=== PATIENT | female | born 1960 | race Caucasian/White ===

== ENCOUNTER → 2018-02-24 12:52 | Outpatient (CLI) | payer MEDICARE, MEDICAID, SELFPAY ==
--- NOTE | 2018-02-24 | DI.MRI.S_ITS ---
PROCEDURE: MR THORACIC SPINE WO CON INDICATIONS: back pain TECHNIQUE: Noncontrast sagittal T1 spine echo and T2 fast spin echo, sagittal STIR, axial T1 and T2 fast spin echo through the thoracic spine. COMPARISON: [facility], , T-SPINE WITHOUT CONTRAST, 03/03/2017, 10:24. [facility], CR, XR THORACIC SPINE 2 VIEWS, 02/15/2018, 16:18. FINDINGS: Image quality: Excellent. Alignment and Curvature: There is normal bony alignment. Bone Marrow: Marrow is of normal overall signal. No acute vertebral body compression fractures. Spinal Cord: Visualized spinal cord is normal in size and signal. Paraspinous Soft Tissues: No paravertebral masses. Disc space levels: Multilevel disc desiccation is present. No significant neural impingement. On axial images, central canal and foramina appear widely patent at all scanned levels. IMPRESSION: Multilevel degenerative disc disease. No neural impingement. No change. Dictated by: Gregor Elliott M.D. on 02/24/2018 at 14:33 Approved by: Gregor Elliott M.D. on 02/24/2018 at 14:35
== END ==
PROVIDERS: Family Provider Family Medicine; PCP Family Medicine; Visit Provider Physical Medicine & Rehabilitation Pain Medicine
DX: M54.6 Pain in thoracic spine (principal); M51.34 Other intervertebral disc degeneration, thoracic region
CPT/HCPCS: 72146

== ENCOUNTER 2018-03-13 16:42 | Emergency (ER) | payer MEDICARE, MEDICAID, SELFPAY ==
--- NOTE | 2018-03-13 16:44 | ED.FEMALEGU ---
HPI - Female Genitourinary <TAYLOR Fan - Last Filed: 03/13/18 22:23> General Chief complaint: Abdominal Pain Stated complaint: UTI/NAUSEA Time Seen by Provider: 03/13/18 16:44 History of Present Illness HPI Narrative: 57-year-old female here for complaint of signs and symptoms of a urinary tract infection with suprapubic pain over the past few days. She reports that she has had multiple urinary tract infections over the past 6 months. She was seen by Urology and was cleared last month. She does state that she has generalized abdominal pain mostly to bilateral lower abdomen. She denies any dysuria or increased urinary frequency is. She thinks that she may had a fever yesterday. No flank pain. Positive p.o. intake. Last bowel movement was earlier today and was unremarkable. She denies any stressors or relievers of her discomfort. She does state that she has had some whitish vaginal discharge. She denies being sexually active. MD Complaint: UTI Related Data Home Medications Medication Instructions Recorded Confirmed [IBS-ULTRA BETAINE HC] 1 dose PO DAILY #0 09/13/17 03/13/18 [benifiber] 1 dose PO BID 03/13/18 03/13/18 venlafaxine 150 mg PO DAILY 03/13/18 03/13/18 Previous Rx's Medication Instructions Recorded atorvastatin 40 mg PO HS #30 tab 12/07/17 fluticasone 1 spray NA SEE INSTRUCTIONS PRN #1 02/20/18 bot diazepam 5 mg tablet 5 mg PO TIDP PRN #30 tab 03/09/18 gabapentin [Neurontin] 300 mg PO TID #90 cap 03/09/18 tizanidine 4 mg PO TID PRN #90 tab 03/09/18 ondansetron [Zofran ODT] 4 mg PO TID PRN #10 tab 03/13/18 Allergies Allergy/AdvReac Type Severity Reaction Status Date / Time Penicillins [PENICILLINS] Allergy Unknown Unverified 12/14/17 12:21 Review of Systems <TAYLOR Fan - Last Filed: 03/13/18 22:23> Constitutional Reports fever(s) Eyes Denies change in vision, Denies eye discharge, Denies irritation and Denies loss of vision ENT Ears, Nose, Mouth, and Throat: Denies change in voice, Denies neck pain and Denies sore throat Cardiovascular Denies chest pain, Denies irregular heart rhythm, Denies lightheadedness, Denies palpitations, Denies dyspnea, Denies dyspnea on exertion and Denies orthopnea Respiratory Denies cough, Denies dyspnea, Denies dyspnea on exertion and Denies wheezing Gastrointestinal Gastrointestinal: Reports abdominal pain Genitourinary Denies hematuria, Denies flank pain, Denies urinary incontinence, Denies urinary urgency and Reports vaginal discharge Musculoskeletal Denies neck pain Integumentary/Breasts Denies pruritus, Denies erythema, Denies rash and Denies wounds Neurologic Denies confusion and Denies loss of vision Psychiatric Denies anxiety, Denies confusion, Denies depression, Denies homicidal ideation and Denies suicidal ideation Endocrine Denies palpitations Hematologic/Lymphatic Denies easy bruising Allergic/Immunologic Denies wheezing Exam <TAYLOR Fan - Last Filed: 03/13/18 22:23> Initial Vital Signs Initial Vital Signs: Vital Signs Temperature 97.9 F 03/13/18 16:50 Pulse Rate 65 03/13/18 16:50 Respiratory Rate 20 03/13/18 16:50 Blood Pressure 115/64 03/13/18 16:50 Pulse Oximetry 97 03/13/18 16:50 Const General: cooperative and well developed Nutritional Appearance: well nourished Orientation: alert, awake, oriented x3 and not confused [facility] Mouth: oral mucosae normal and moist mucous membranes Eyes Conjunctivae: conjunctivae normal Sclera: sclerae normal Pupils: PERRL EOM: EOM intact bilaterally Resp Effort & Inspection: normal respiratory effort, able to speak in complete sentences, no respiratory distress and no use of accessory muscles Auscultation: clear to auscultation bilaterally, no rales, no rhonchi and no wheezes Cardio Rate: regular rate Rhythm: regular rhythm Heart Sounds: no click, no gallops, no murmurs and no rubs Pulses: normal peripheral pulses GI Inspection: non-distended Palpation: soft, no hepatosplenomegaly, No guarding, No pulsatile mass and tender (Tenderness bilaterally to lower quadrant) Auscultation: normal bowel sounds Skin General: no rashes or lesions noted, No jaundice and No petechiae Neuro General: alert, oriented x3, gait normal and no focal motor deficits Speech: speech normal <Michelet Quiñones DO - Last Filed: 03/14/18 07:21> Initial Vital Signs Initial Vital Signs: Vital Signs Temperature 97.9 F 03/13/18 16:50 Pulse Rate 65 03/13/18 16:50 Respiratory Rate 20 03/13/18 16:50 Blood Pressure 115/64 03/13/18 16:50 Pulse Oximetry 97 03/13/18 16:50 Course <TAYLOR Fan - Last Filed: 03/13/18 22:23> Orders Ordered: Discontinued Medications Hydromorphone HCl (Dilaudid) 0.5 mg IV NOW ONE Stop: 03/13/18 17:12 Last Admin: 03/13/18 17:55 Dose: 0.5 mg Sodium Chloride (Normal Saline 0.9%) 1,000 mls @ 1,000 mls/hr IV BOLUS ONE Stop: 03/13/18 18:10 Last Admin: 03/13/18 17:55 Dose: 1,000 mls/hr Ondansetron HCl (Zofran) 4 mg IV NOW ONE Stop: 03/13/18 17:12 Last Admin: 03/13/18 17:55 Dose: 4 mg Vital Signs - 8 hr 03/13/18 16:50 03/13/18 19:50 Temperature 97.9 F Pulse Rate 65 72 Respiratory Rate 20 20 Blood Pressure 115/64 118/70 Pulse Oximetry 97 99 <Michelet Quiñones DO - Last Filed: 03/14/18 07:21> Orders Ordered: Discontinued Medications Hydromorphone HCl (Dilaudid) 0.5 mg IV NOW ONE Stop: 03/13/18 17:12 Last Admin: 03/13/18 17:55 Dose: 0.5 mg Sodium Chloride (Normal Saline 0.9%) 1,000 mls @ 1,000 mls/hr IV BOLUS ONE Stop: 03/13/18 18:10 Last Admin: 03/13/18 17:55 Dose: 1,000 mls/hr Ondansetron HCl (Zofran) 4 mg IV NOW ONE Stop: 03/13/18 17:12 Last Admin: 03/13/18 17:55 Dose: 4 mg Vital Signs - 8 hr 03/13/18 16:50 03/13/18 19:50 Temperature 97.9 F Pulse Rate 65 72 Respiratory Rate 20 20 Blood Pressure 115/64 118/70 Pulse Oximetry 97 99 MDM - Female Genitourinary <TAYLOR Fan - Last Filed: 03/13/18 22:23> Lab Data Result diagrams: 03/13/18 17:30 03/13/18 17:30 Lab Results 03/13/18 03/13/18 03/13/18 Range/Units 17:30 17:30 17:30 WBC 8.6 (4.5-11.0) X10^3/uL RBC 4.61 (4.0-5.2) X10^6/uL Hgb 14.2 (12.0-16.0) g/dL Hct 42.2 (36-46) % MCV 91.6 (80-100) fL MCH 30.8 (26-34) PG MCHC 33.6 (30-36) % RDW 14.1 (11.6-14.8) % Plt Count 254 (150-400) X10^3/uL Neut % (Auto) 62.2 (50-75) % Lymph % (Auto) 31.2 (25-40) % Blanco % (Auto) 5.2 (3-14) % Eos % (Auto) 0.6 L (2-4) % Baso % (Auto) 0.8 (0-2) % Neut # (Auto) 5400 (7333-6629) /uL Sodium 146 H (137-145) mmol/L Potassium 4.2 (3.4-5.1) mmol/L Chloride 105 (98-107) mmol/L Carbon Dioxide 32 (22-32) mmol/L BUN 9 (7-17) mg/dL Creatinine 0.70 (0.52-1.04) mg/dL Estimated GFR > 60.0 (>60) mL/min BUN/Creatinine Ratio 12.9 (6-22) Glucose 91 (70-100) mg/dL Calcium 9.4 (8.4-10.2) mg/dL Total Bilirubin 0.5 (0.2-1.3) mg/dL AST 24 (14-36) IU/L ALT 25 (9-52) IU/L Alkaline Phosphatase 87 (38-126) U/L Total Protein 7.2 (6.3-8.2) g/dL Albumin 4.2 (3.5-5.0) g/dL Globulin 3.0 (1.7-4.1) g/dL Albumin/Globulin Ratio 1.4 (1.0-2.8) Lipase 623 H (23-300) U/L Imaging Data CT scan - abdomen: Radiologist's impression: CT Scan Report Signed Patient: Ashwini Rosas MR#: [id number] : 1960 Acct:[id number] Age/Sex: 57 / F Date of Service: 03/13/18 Loc: ED Accession Number: [id number] Procedure: CT abdomen pelvis w con Ordering Provider: Jean Carlos To PROCEDURE: CT ABDOMEN PELVIS W CON INDICATIONS: Bilateral lower abdominal pain TECHNIQUE: After the administration of intravenous contrast, 5 mm thick sections acquired from the diaphragm to the symphysis. 5 mm coronal and sagittal reformats were acquired. For radiation dose reduction, the following was used: automated exposure control, adjustment of mA and/or kV according to patient size. COMPARISON: [facility], CT, ABDOMEN/PELVIS WITH CONTRAST, 10/14/2016, 11:14. FINDINGS: Image quality: Excellent. ABDOMEN: Lung bases: Lung bases are clear. Heart size is normal. Solid organs: Liver is normal in size and enhancement. Gallbladder is within normal limits. Biliary system is non dilated. Pancreas enhances normally. Spleen is normal in size and enhancement. No adrenal nodules. Kidneys demonstrate normal size and enhancement, without hydronephrosis. Peritoneum and bowel: Bowel loops demonstrate normal wall thickness and caliber. No free fluid or air. Normal appendix. Nodes and vessels: No retroperitoneal or mesenteric adenopathy by size criteria. Aorta and inferior vena cava are normal in size. Miscellaneous: No ventral hernias. PELVIS: Genitourinary: Bladder wall thickness is normal. Miscellaneous: No inguinal hernias or adenopathy. Bones: No suspicious bony lesions. No vertebral body compression fractures. IMPRESSION: 1. No acute process. 2. Normal appendix. Dictated by: Gregor Elliott M.D. on 03/13/2018 at 18:58 Approved by: Gregor Elliott M.D. on 03/13/2018 at 19:00 [facility] Narrative Medical decision making narrative: CBC and Chem panel were obtained and were unremarkable. Lipase was elevated at [address] was obtained was negative for any acute findings. Vaginal wet prep was obtained was negative for any acute findings. Vaginal culture is pending. Urinalysis was negative for urinary tract infection. No etiology is found today for her abdominal pain. She is recommended to follow up with primary care provider in the next couple of days for re-evaluation. Use [id number] Tylenol Motrin as needed for discomfort for any worsening symptoms return to the emergency room. Patient requested as some Zofran prescribed for nausea she is given a small amount of Zofran ODT. <Michelet Quiñones, DO - Last Filed: 03/14/18 07:21> Lab Data Lab Results 03/13/18 03/13/18 03/13/18 Range/Units 17:30 17:30 17:30 WBC 8.6 (4.5-11.0) X10^3/uL RBC 4.61 (4.0-5.2) X10^6/uL Hgb 14.2 (12.0-16.0) g/dL Hct 42.2 (36-46) % MCV 91.6 (80-100) fL MCH 30.8 (26-34) PG MCHC 33.6 (30-36) % RDW 14.1 (11.6-14.8) % Plt Count 254 (150-400) X10^3/uL Neut % (Auto) 62.2 (50-75) % Lymph % (Auto) 31.2 (25-40) % Blanco % (Auto) 5.2 (3-14) % Eos % (Auto) 0.6 L (2-4) % Baso % (Auto) 0.8 (0-2) % Neut # (Auto) 5400 (5750-5610) /uL Sodium 146 H (137-145) mmol/L Potassium 4.2 (3.4-5.1) mmol/L Chloride 105 (98-107) mmol/L Carbon Dioxide 32 (22-32) mmol/L BUN 9 (7-17) mg/dL Creatinine 0.70 (0.52-1.04) mg/dL Estimated GFR > 60.0 (>60) mL/min BUN/Creatinine Ratio 12.9 (6-22) Glucose 91 (70-100) mg/dL Calcium 9.4 (8.4-10.2) mg/dL Total Bilirubin 0.5 (0.2-1.3) mg/dL AST 24 (14-36) IU/L ALT 25 (9-52) IU/L Alkaline Phosphatase 87 (38-126) U/L Total Protein 7.2 (6.3-8.2) g/dL Albumin 4.2 (3.5-5.0) g/dL Globulin 3.0 (1.7-4.1) g/dL Albumin/Globulin Ratio 1.4 (1.0-2.8) Lipase 623 H (23-300) U/L Discharge Plan Departure Patient Disposition: Home, Self-Care Clinical Impression: Abdominal pain Discharge Date/Time: 03/13/18 19:50 Interventions: ED Discharge Assessment Last Done: 03/13/18 19:50 Instructions: DI for Abdominal Pain-Adult Activity Restrictions/Additional Instructions: Laboratory results and imaging today were unremarkable. Urinalysis was negative for urinary tract infection. Unknown cause of year abdominal pain today. Follow up with her primary care provider in the next couple of days for re-evaluation. Zofran is prescribed to help with any nausea use as directed. Use [id number] Tylenol Motrin as needed for any discomfort. For any worsening symptoms return to the emergency room. Prescriptions: New ondansetron [Zofran ODT] 4 mg tablet,disintegrating 4 mg PO TID PRN (Reason: nausea and vomiting) Qty: 10 RF: 0 No Action [IBS-ULTRA BETAINE HC] 1 dose PO DAILY Qty: 0 RF: 0 atorvastatin 40 MG tablet 40 mg PO HS Qty: 30 RF: 5 fluticasone 50 mcg/actuation spray,suspension 1 spray NA SEE INSTRUCTIONS PRNQty: 1 RF: 2 diazepam 5 mg tablet 5 mg PO TIDP PRN (Reason: muscle spasm) Qty: 30 RF: 0 gabapentin [Neurontin] 300 mg capsule 300 mg PO TID Qty: 90 RF: 3 tizanidine 4 mg tablet 4 mg PO TID PRNQty: 90 RF: 3 venlafaxine 150 mg capsule,extended release 24hr 150 mg PO DAILY RF: 0 [benifiber] 1 dose PO BID RF: 0 Referrals: Randy Cisneros MD [Primary Care Provider] - <Michelet Quiñones DO - Last Filed: 03/14/18 07:21> Cosign ED Attending Umesh Attestation: I was available for consultation during this patient's emergency department encounter
[2018-03-13 16:50] VITALS: BP 115/64; PULSE 65; RESP 20; TEMP 36.6; O2SAT 97
--- NOTE | 2018-03-13 17:13 | DI.CT.S_ITS ---
PROCEDURE: CT ABDOMEN PELVIS W CON INDICATIONS: Bilateral lower abdominal pain TECHNIQUE: After the administration of intravenous contrast, 5 mm thick sections acquired from the diaphragm to the symphysis. 5 mm coronal and sagittal reformats were acquired. For radiation dose reduction, the following was used: automated exposure control, adjustment of mA and/or kV according to patient size. COMPARISON: [facility], CT, ABDOMEN/PELVIS WITH CONTRAST, 10/14/2016, 11:14. FINDINGS: Image quality: Excellent. ABDOMEN: Lung bases: Lung bases are clear. Heart size is normal. Solid organs: Liver is normal in size and enhancement. Gallbladder is within normal limits. Biliary system is non dilated. Pancreas enhances normally. Spleen is normal in size and enhancement. No adrenal nodules. Kidneys demonstrate normal size and enhancement, without hydronephrosis. Peritoneum and bowel: Bowel loops demonstrate normal wall thickness and caliber. No free fluid or air. Normal appendix. Nodes and vessels: No retroperitoneal or mesenteric adenopathy by size criteria. Aorta and inferior vena cava are normal in size. Miscellaneous: No ventral hernias. PELVIS: Genitourinary: Bladder wall thickness is normal. Miscellaneous: No inguinal hernias or adenopathy. Bones: No suspicious bony lesions. No vertebral body compression fractures. IMPRESSION: 1. No acute process. 2. Normal appendix. Dictated by: Gregor Elliott M.D. on 03/13/2018 at 18:58 Approved by: Gregor Elliott M.D. on 03/13/2018 at 19:00
[2018-03-13 17:46] LABS: Add Manual Diff / Slide Review NO; Basophils Percent Auto 0.8 % (0-2); Eosinophils Percent Auto 0.6 % (2-4); Hematocrit 42.2 % (36-46); Hemoglobin 14.2 g/dL (12.0-16.0); Lymphocytes Percent Auto 31.2 % (25-40); Mean Corpuscular HGB Conc 33.6 % (30-36); Mean Corpuscular Hemoglobin 30.8 PG (26-34); Mean Corpuscular Volume 91.6 fL (80-100); Monocytes Percent Auto 5.2 % (3-14); Neutrophils Absolute Auto 5400 /uL (3000-5900); Neutrophils Percent Auto 62.2 % (50-75); Platelet Count 254 X10^3/uL (150-400); Red Blood Cell Count 4.61 X10^6/uL (4.0-5.2); Red Cell Distribution Width 14.1 % (11.6-14.8); White Blood Cell Count 8.6 X10^3/uL (4.5-11.0)
[2018-03-13] MEDS: SODIUM CHLORIDE 0.9% 1,000 ML 1000 ML IV (17:55)
[2018-03-13] MEDS: ONDANSETRON 4 MG/2 ML INJ IV (17:55)
[2018-03-13] MEDS: HYDROMORPHONE 1 MG INJ 0.5 MG IV (17:55)
[2018-03-13 18:00] LABS: Alanine Aminotransferase 25 IU/L (9-52); Albumin 4.2 g/dL (3.5-5.0); Albumin Globulin Ratio 1.4 (1.0-2.8); Alkaline Phosphatase 87 U/L (38-126); Aspartate Aminotransferase 24 IU/L (14-36); BUN Creatinine Ratio 12.9 (6-22); Bilirubin Total 0.5 mg/dL (0.2-1.3); Blood Urea Nitrogen 9 mg/dL (7-17); Calcium 9.4 mg/dL (8.4-10.2); Carbon Dioxide 32 mmol/L (22-32); Chloride 105 mmol/L (98-107); Estimated Glomerular Filt Rate > 60.0 mL/min (>60); Glucose 91 mg/dL (70-100); HEMOLYSIS < 15 (0-50); Potassium 4.2 mmol/L (3.4-5.1); Sodium 146 mmol/L (137-145); Total Protein 7.2 g/dL (6.3-8.2)
--- NOTE | 2018-03-13 18:18 | PC.NURSE ---
Addendum entered by Georgia Clay R.N. 03/13/18 18:19: assisted darren Fan with pelvic exams. cultures sent to lab. Original Note: assisted Jean Carlos Smith
[2018-03-13 18:51] LABS: Lipase 623 U/L (23-300)
[2018-03-13 19:50] VITALS: BP 118/70; PULSE 72; RESP 20; O2SAT 99
== END 2018-03-13 19:50 | disposition home or self-care (01) ==
PROVIDERS: Emergency Provider Nurse Practitioner Family; Family Provider Family Medicine; PCP Family Medicine
DX: R10.9 Unspecified abdominal pain (principal)
CPT/HCPCS: 36591; 74177; 80053; 81003; 83690; 85025; 87070; 87205; 87210; 96361; 96374; 96375; 99283; 99285; J1170; J2405; Q9967

== ENCOUNTER → 2018-05-10 10:42 | Outpatient (CLI) | payer MEDICARE, MEDICAID, SELFPAY ==
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
== END ==
PROVIDERS: Family Provider Family Medicine; PCP Family Medicine; Visit Provider Family Medicine
DX: R63.4 Abnormal weight loss (principal)
CPT/HCPCS: 97802

== ENCOUNTER → 2018-06-07 10:46 | Outpatient (CLI) | payer MEDICARE, MEDICAID, SELFPAY ==
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
== END ==
PROVIDERS: PCP Family Medicine; Visit Provider Family Medicine
DX: R63.4 Abnormal weight loss (principal)
CPT/HCPCS: 97803

== ENCOUNTER → 2018-07-05 12:54 | Outpatient (CLI) | payer MEDICARE, MEDICAID, SELFPAY ==
--- NOTE | 2018-07-05 14:27 | DIET.PN ---
Met for 2nd f/u consult. Ashwini brought food journal with her. Has been keeping journal for a very long time and reporting to IBS nurse. Food record is very brief with no quantities; pt unaware of servings. A quick calculation of one of the days shows calories approx 1000 to 1200. Continues to meet with P.T. 2x/wk. States she's not getting stronger or getting better. With further inquiry admits she is lifting her arms higher; able to operate a hand cycle machine that she couldn't have a month ago, etc. Weight: 146# Assessment: Wt stable and at good level. Appears to be making progress, though very slowly, with building strength/muscle and needs constant reminders to help see the improvement. Food record is not very useful but does show limited items. Has difficulty with eating many foods r/t poor dentition - needs teeth removed and to get dentures. Has increased protein intake with use of Muscle Milk, but needs more calories to build muscle. Intervention: Pointed out markers to help pt realize improvements made and encourage her to focus on these. Suggest Ashwini get calorie counting book and keep track of italo intake - needs at least 1800 cals/day. Reinforced need for frequent intake; calorie/protein dense foods. Ashwini states she has one more visit with me - will f/u next month
== END ==
PROVIDERS: PCP Student in an Organized Health Care Education/Training Program; Visit Provider Family Medicine
DX: R63.4 Abnormal weight loss (principal)
CPT/HCPCS: 97803

== ENCOUNTER → 2018-08-02 12:59 | Outpatient (CLI) | payer MEDICARE, MEDICAID, SELFPAY ==
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
== END ==
PROVIDERS: PCP Student in an Organized Health Care Education/Training Program; Visit Provider Student in an Organized Health Care Education/Training Program
DX: R63.4 Abnormal weight loss (principal)
CPT/HCPCS: 97803

== ENCOUNTER → 2019-02-23 13:32 | Outpatient (CLI) | payer MEDICARE, SELFPAY ==
[2019-02-23 14:28] LABS: BUN Creatinine Ratio 17.5 (6-22); Blood Urea Nitrogen 14 mg/dL (7-17); Calcium 9.6 mg/dL (8.4-10.2); Carbon Dioxide 31 mmol/L (22-32); Chloride 105 mmol/L (98-107); Estimated Glomerular Filt Rate > 60.0 mL/min (>60); Glucose 98 mg/dL (70-100); HEMOLYSIS < 15 (0-50); Potassium 4.5 mmol/L (3.4-5.1); Sodium 143 mmol/L (137-145)
[2019-02-23 15:16] LABS: Vitamin B12 374 pg/mL (239-931)
[2019-02-23 16:06] LABS: Vitamin D 25 Hydroxy (D3) 39.4 ng/mL (30.0-100.0)
== END ==
PROVIDERS: PCP Student in an Organized Health Care Education/Training Program; Visit Provider Student in an Organized Health Care Education/Training Program
DX: E55.9 Vitamin D deficiency, unspecified (principal); G89.29 Other chronic pain; M54.6 Pain in thoracic spine; G62.9 Polyneuropathy, unspecified; I95.9 Hypotension, unspecified
CPT/HCPCS: 36415; 80048; 82306; 82607

== ENCOUNTER → 2019-07-06 13:55 | Outpatient (CLI) | payer MEDICARE, MEDICAID, SELFPAY ==
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
== END ==
PROVIDERS: PCP Student in an Organized Health Care Education/Training Program; Visit Provider Student in an Organized Health Care Education/Training Program
DX: R20.2 Paresthesia of skin (principal); M47.812 Spondylosis without myelopathy or radiculopathy, cervical region
CPT/HCPCS: 72141

== ENCOUNTER → 2019-09-10 15:50 | Outpatient (CLI) | payer MEDICARE, MEDICAID, SELFPAY ==
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
== END ==
PROVIDERS: PCP Student in an Organized Health Care Education/Training Program; Visit Provider Student in an Organized Health Care Education/Training Program
DX: M25.511 Pain in right shoulder (principal); M75.111 Incomplete rotator cuff tear or rupture of right shoulder, not specified as traumatic; M19.011 Primary osteoarthritis, right shoulder
CPT/HCPCS: 73221

== ENCOUNTER → 2019-12-11 15:13 | Outpatient (CLI) | payer MEDICARE, MEDICAID, SELFPAY ==
[2019-12-11 17:13] LABS: Influenza A - CEPHEID Flu A NEGATIVE (NEGATIVE); Influenza B - CEPHEID Flu B NEGATIVE (NEGATIVE)
[2019-12-13 01:10] LABS: COVID19 Sendout Not Detected (Not Detected)
== END ==
PROVIDERS: PCP Student in an Organized Health Care Education/Training Program; Visit Provider Physician Assistant
DX: R05 Cough (principal)
CPT/HCPCS: 87502; 87635

== ENCOUNTER → 2019-12-27 11:00 | Outpatient (CLI) | payer MEDICARE, MEDICAID, SELFPAY ==
--- NOTE | 2019-12-27 11:03 | DI.RAD.S_ITS ---
PROCEDURE: XR CHEST 2V INDICATIONS: Cough, SOB (COVID negative) TECHNIQUE: 2 views of the chest were acquired. COMPARISON: [facility], , CHEST 2 VIEW, 08/16/2017, 13:09. FINDINGS: Surgical changes and devices: None. Lungs and pleura: Lungs are clear. No pleural effusions or pneumothorax. Mediastinum: Mediastinal contours are normal. Heart size is normal. Bones and chest wall: No suspicious bony abnormalities. Soft tissues appear unremarkable. IMPRESSION: No acute cardiopulmonary disease. Dictated by: Román Rodriguez M.D. on 12/27/2019 at 13:21 Approved by: Román Rodriguez M.D. on 12/27/2019 at 13:22
== END ==
PROVIDERS: PCP Student in an Organized Health Care Education/Training Program; Referring Provider Student in an Organized Health Care Education/Training Program; Visit Provider Student in an Organized Health Care Education/Training Program
DX: R05 Cough (principal); R06.02 Shortness of breath
CPT/HCPCS: 71046

== ENCOUNTER → 2020-10-10 13:02 | Outpatient (CLI) | payer MEDICARE, MEDICAID, SELFPAY ==
--- NOTE | 2020-10-10 13:05 | DI.CT.S_ITS ---
PROCEDURE: CT ABDOMEN PELVIS WO CON INDICATIONS: Abdominal pain and distention TECHNIQUE: Noncontrast 5 mm thick sections acquired from the diaphragms to the symphysis. 5 mm coronal and sagittal reformats were then performed. For radiation dose reduction, the following was used: automated exposure control, adjustment of mA and/or kV according to patient size. COMPARISON: 09/15/20 from [facility]. FINDINGS: Image quality: Excellent. ABDOMEN: Lung bases: Lung bases are clear. Heart size is normal. Solid organs: Liver is normal in size. Gallbladder is normal . Pancreas is normal in contours. Spleen is normal in size. No adrenal nodules. Kidneys are normal in size, without hydronephrosis or nephrolithiasis. Peritoneum and bowel: Unenhanced bowel loops demonstrate normal wall thickness and caliber. Subcentimeter intraluminal nonobstructing lipoma in the 2nd portion of the duodenum. Normal appendix. No free fluid or air. Nodes and vessels: No retroperitoneal or mesenteric adenopathy by size criteria. Aorta and inferior vena cava are normal in caliber. Moderate abdominal aortic atherosclerotic calcification. Miscellaneous: No ventral hernias. PELVIS: Genitourinary: Bladder wall thickness is normal. Uterus and ovaries are normal. Miscellaneous: No inguinal hernias or adenopathy. Bones: No suspicious bony lesions. No vertebral body compression fractures. IMPRESSION: 1. No acute process. 2. Resolution of prominent mesenteric lymph nodes. Dictated by: Renetta Simental M.D. on 10/10/2020 at 16:57 Approved by: Renetta Simental M.D. on 10/10/2020 at 17:04
== END ==
PROVIDERS: PCP Student in an Organized Health Care Education/Training Program; Referring Provider Student in an Organized Health Care Education/Training Program; Visit Provider Student in an Organized Health Care Education/Training Program
DX: R14.0 Abdominal distension (gaseous) (principal); R10.9 Unspecified abdominal pain
CPT/HCPCS: 74176

== ENCOUNTER → 2020-11-14 11:37 | Outpatient (CLI) | payer MEDICARE, MEDICAID, SELFPAY ==
--- NOTE | 2020-11-14 11:39 | DI.RAD.S_ITS ---
PROCEDURE: XR SACRUM COCCYX MIN 2V INDICATIONS: Coccygeal pain, numbness TECHNIQUE: 3 views of the sacrum and coccyx acquired. COMPARISON: None. FINDINGS: Bones: No acute fracture identified. Lower lumbar spondylosis and facet disease. Alignment at the sacroiliac joints is anatomic. There is mild periarticular sclerosis and spurring without joint space narrowing of the SI joints. Bilateral hip degenerative subchondral sclerosis and spurring. Soft tissues: Visualized bowel gas pattern is normal. No suspicious soft tissue densities. IMPRESSION: No acute fracture identified. Degenerative changes as above Dictated by: Royal Lew M.D. on 11/14/2020 at 12:57 Approved by: Royal Lew M.D. on 11/14/2020 at 12:59
== END ==
PROVIDERS: PCP Student in an Organized Health Care Education/Training Program; Referring Provider Student in an Organized Health Care Education/Training Program; Visit Provider Student in an Organized Health Care Education/Training Program
DX: M53.3 Sacrococcygeal disorders, not elsewhere classified (principal); M54.17 Radiculopathy, lumbosacral region; R20.0 Anesthesia of skin
CPT/HCPCS: 72220

== ENCOUNTER → 2021-01-09 16:11 | Outpatient (CLI) | payer MEDICARE, MEDICAID, SELFPAY ==
--- NOTE | 2021-01-09 16:13 | DI.RAD.S_ITS ---
PROCEDURE: XR HIP W PEL IF DONE VALERIY MIN 4V INDICATIONS: Possible bursititis of hips TECHNIQUE: AP pelvis with lateral view(s) of the left and right hip(s). COMPARISON: [facility], CT, CT ABDOMEN PELVIS WO CON, 10/10/2020, 13:06. FINDINGS: Bones: No fractures or dislocations. Pelvic ring appears intact. No suspicious bony lesions. Soft tissues: The visualized bowel gas pattern is normal. No suspicious soft tissue calcifications. IMPRESSION: Mild symmetric hip joint degeneration. Dictated by: Travon Arthur [facility] Interpreted: Jake Mcginnis MD on 01/09/2021 at 16:34 Transcribed by: JEFFREY on 01/09/2021 at 16:34 Approved by: Jake Mcginnis M.D. on 01/09/2021 at 16:53
== END ==
PROVIDERS: PCP Student in an Organized Health Care Education/Training Program; Referring Provider Student in an Organized Health Care Education/Training Program; Visit Provider Student in an Organized Health Care Education/Training Program
DX: M16.0 Bilateral primary osteoarthritis of hip (principal)
CPT/HCPCS: 73522

== ENCOUNTER → 2021-01-21 15:14 | Outpatient (CLI) | payer MEDICARE, MEDICAID, SELFPAY ==
[2021-01-21 15:27] LABS: Bacteria Urine None Seen; RBC Urine None Seen (0-5/HPF); WBC Urine None Seen (0-5/HPF)
[2021-01-21 17:18] LABS: Appearance Urine UA CLEAR; Bilirubin Urine UA NEGATIVE (NEGATIVE); Color Urine UA YELLOW; Glucose Urine UA NEGATIVE (Negative); Ketones Urine UA NEGATIVE (NEGATIVE); Leukocyte Esterase Urine UA NEGATIVE (NEGATIVE); Nitrite Urine UA NEGATIVE (Negative); Occult Blood Urine UA 1+ (Negative); Protein Urine UA NEGATIVE (Negative); Urobilinogen Urine UA 0.2 E.U./dL (0.2)
[2021-01-21 17:19] LABS: Culture Indicated Urine Cult Not Indicated; Squamous Epithelial Cell Urine 0-1 /HPF (0-5/HPF); pH Urine UA 5.5 (4.5-8.0)
== END ==
PROVIDERS: PCP Student in an Organized Health Care Education/Training Program; Referring Provider Student in an Organized Health Care Education/Training Program; Visit Provider Student in an Organized Health Care Education/Training Program
DX: R30.0 Dysuria (principal)
CPT/HCPCS: 81001

== ENCOUNTER → 2021-02-06 17:54 | Outpatient (CLI) | payer MEDICARE, MEDICAID, SELFPAY ==
--- NOTE | 2021-02-06 17:58 | DI.MRI.S_ITS ---
PROCEDURE: MR LUMBAR SPINE WO CON INDICATIONS: lumbar pain TECHNIQUE: Noncontrast sagittal T1 spin echo and T2 fast echo, sagittal STIR, axial T1 and T2 fast spin echo through the lumbar spine. In cases with scoliosis, additional coronal T2 fast spin echo may be performed. COMPARISON: None. FINDINGS: Image quality: Excellent. Alignment and Curvature: There is normal bony alignment. Bone Marrow: Marrow is of normal overall signal. No acute vertebral body compression fractures. Spinal Cord: Conus medullaris terminates at the L1 level. Visualized cord demonstrates normal signal and size. Paraspinous Soft Tissues: No paravertebral masses. 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 T12-L1: Normal appearance. L1-L2: Normal appearance. L2-L3: Normal appearance. L3-L4: Diffuse disc bulge with no significant foraminal or central canal stenosis. L4-L5: Diffuse disc bulge and facet hypertrophy causes mild bilateral foraminal stenosis. No central canal stenosis. L5-S1: Normal appearance. IMPRESSION: 1. Minimal diffuse disc bulge at L3-4 with no significant foraminal or central canal stenosis. 2. Mild diffuse disc bulge and facet hypertrophy at L4-5 causing mild bilateral foraminal stenosis. 3. No focal protrusion or extrusion. Dictated by: Jorge Hernández M.D. on 02/09/2021 at 8:22 Approved by: Jorge Hernández M.D. on 02/09/2021 at 8:51
== END ==
PROVIDERS: PCP Student in an Organized Health Care Education/Training Program; Referring Provider Student in an Organized Health Care Education/Training Program; Visit Provider Student in an Organized Health Care Education/Training Program
DX: M51.16 Intervertebral disc disorders with radiculopathy, lumbar region (principal); M54.5 Low back pain
CPT/HCPCS: 72148

== ENCOUNTER 2021-02-20 15:00 | Outpatient (RCR) | payer MEDICARE, MEDICAID, SELFPAY ==
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
--- NOTE | 2020-11-14 13:27 | PT.OPPOC ---
Physical, Occupational & Speech Therapy At [facility] Current Diagnoses Slow transit constipation (11/14/20) Pain in unspecified hip (11/14/20) Sacrococcygeal disorders, not elsewhere classified (11/14/20) Pelvic and perineal pain (11/14/20) Abnormal posture (11/14/20) Visit Care Team Role Provider Type Murtaza Segura MD Attending Provider Physician Primary Care Provider Referring Provider Specialty: Internal Medicine Address: [address] [place] [address], [address], [facility] Email: [email or web address] Plan Of Care PT-OP-T Assessment and Plan Start: 11/10/20 17:36 Freq: Status: Active Protocol: Document 11/14/20 10:37 LRN (Rec: 11/14/20 12:32 LRN [id number]) Physical Therapy Assessment Rehab Potential Rehabilitation Potential Fair Evaluation Complexity Number of Personal Factors/Comorbidities 3 or More Number of Body Systems Impaired 4 or More Clinical Presentation at Evaluation Evolving Impairments Impairments Activity Tolerance,Gait,Pain, ROM,Soft Tissue Mobility, Strength Other Impairments Constipation, anal pain. Goals Three Impairment Tenderness to palpation & multiple active Trigger Points in Pelvic region Short Term Goal (STG) Pt will be educated and able to perform self STM of active trigger points. STG Duration 11/28/20 [employer] Goal (LTG) Pt will be able to tolerate sitting for no less than 30 minutes. LTG Duration 02/12/21 Two Impairment Pelvic pain rated 9/10 Short Term Goal (STG) Pt will be educated in proper bowel care and pelvic stretches, with a decrease in pelvic pain 50%. STG Duration 01/02/21 [employer] Goal (LTG) Pt goal is to have a BM without pain or burning. LTG Duration 02/12/21 One Impairment Lacks appropriates self [facility] program. [facility] Goal (LTG) Pt will be independent with a self m[facility] program. LTG Duration 02/12/21 Assessment Summary Assessment Pt is a 60 year old female who presents with complaints of excruciating pain in the low buttocks, pelvic floor region, hips, and lower extremities, but is able to independently move on the plinth table and off/on the table. The pt has very low tolerance to mobility of hips and demonstrates pain behavior with light palpation in her hips and pelvic region ; therefore assessment of soft tissue, mobility and strength was very limited. I was not able to adequately assess her PF due to her pain behaviour and continual complaints of pain. The pt will need ongoing assessment as she had low tolerance to assessments. It is expected that the pt will need extended therapy due to her extensive medical history and comorbidities. The pt will benefit from skilled physical therapy for education in a self care program of trunk, hip and pelvic region with exercises, self soft tissue treatment, and importantly, education in proper bowel and self care. If the pt will tolerate a PF exam, manual therapy may be beneficial in reducing some of her pain symptoms. Physical Therapy Plan Frequency and Duration Frequency of Treatment 1x/Week Duration of Treatment 5 visits Plan of Care Start Date 11/14/20 Plan of Care End Date 02/12/21 Therapeutic Interventions Therapeutic Interventions Aquatic Therapy,Gait Training, Home Exercise Program,Joint Mobilizations,Manual Therapy, Patient/Caregiver Education, Self-Care/Home Management,Soft Tissue Mobilization, Therapeutic Activities, Therapeutic Exercises Other Therapeutic Interventions Aquatic therapy when available and when appropriate. Next Visit Focus/Plan Next Note Type Treatment Note Next Visit Plan Start with review of bladder diary & issued HEP. Assess soft tissue of the posterior PF (pt reportedly doesn't have as much of an issue with her bladder and urinary system although she has to forward bend to urinate), core and hips. Assess trunk mobility and core/hip strength. Discuss/educate pt in strategies for ease of having BM's and proper PF care; initiate HEP to address any mobility and strength deficits , STM to posterior PF muscles as necessary. Plan of Care Dates Plan of Care Start Date 11/14/20 Plan of Care End Date 02/12/21 Electronically Signed by: Zenaida Shepherd, PT 11/18/20 [id number] Please Sign and Return: I have reviewed this Plan of Care and certify that the skilled therapy services above are required to meet the patient?s needs. Physician Signature Date Printed Name and Credentials Clinical Instructor Signature Printed Name and Credentials
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
--- NOTE | 2021-02-10 17:03 | PT.OPPOC ---
Physical, Occupational & Speech Therapy At [facility] Current Diagnoses Slow transit constipation (02/10/21) Pain in unspecified hip (02/10/21) Sacrococcygeal disorders, not elsewhere classified (02/10/21) Pelvic and perineal pain (02/10/21) Abnormal posture (02/10/21) Visit Care Team Role Provider Type Murtaza Segura MD Attending Provider Physician Primary Care Provider Referring Provider Specialty: Internal Medicine Address: [address] [place] [address], [address], [facility] Email: [email or web address] Plan Of Care PT-OP-T Assessment and Plan Start: 11/10/20 17:36 Freq: Status: Active Protocol: Document 02/10/21 12:44 LRN (Rec: 02/10/21 14:23 LRN [id number]) Physical Therapy Assessment Rehab Potential Rehabilitation Potential Excellent Evaluation Complexity Number of Personal Factors/Comorbidities 3 or More Number of Body Systems Impaired 3 Clinical Presentation at Evaluation Evolving Impairments Impairments Pain,Posture,Soft Tissue Mobility Goals Four Impairment Pelvic pain with palpation Short Term Goal (STG) Pt will be independent with self PF stretching for pain management. STG Duration 04/03/21 Doll Wigs Hackler Goal (LTG) Decrease PF pain with moderate pressure. LTG Duration 05/11/21 Three Impairment Tenderness to palpation & multiple active Trigger Points in Pelvic region Short Term Goal (STG) Pt will be educated and able to perform self STM of active trigger points. STG Duration 11/28/20 (11/28/20: MET GOAL) Halfway Goal (LTG) Pt will be able to tolerate sitting for no less than 30 minutes. (02/10/21: Can sit 30'-40' with cushion without pain). LTG Duration 02/12/21 (02/10/21: MET GOAL) Two Impairment Pelvic pain rated 9/10 Short Term Goal (STG) Pt will be educated in proper bowel care and pelvic stretches, with a decrease in pelvic pain 50%. (12/01/20: Pt doing self bowel massage and PF stretch - Happy Baby Pose, educated pt in modified bowel program) (11/21/20: Pt educated in proper bowel care) (12/26/20: Report of no abdominal or rectal pain) (02/10/21: Pt states: pain is off/on, usually 6/10, always hurts) STG Duration 01/02/21 (12/26/20: MET GOAL) Doll Wigs Hackler Goal (LTG) Pt goal is to have a BM without pain or burning. (12/26/20: Pt reports first week of having BM daily without pain). (01/10/32: Pain with BM today) (02/10/21: No pain with BM) LTG Duration 02/12/21 (02/10/21: MET GOAL) One Impairment Lacks appropriates self mcc program. Halfway Goal (LTG) Pt will be independent with a self mcc program. (01/16/21: Issued Hip stretch in sitting, 3 positions for Piriformis) LTG Duration 05/11/21 (01/16/21: Progressed) Progress Towards Goals Progress Comments Goal # 3 Met. Assessment Summary Assessment Pt had teeth pulled after last session followed by constipation; therefore pain relief from last session was not long lasting. Pt has managed her PF pain once off her pain medications. Primary area of dysfunction is mild pain in PF clock 6-12. Pt will benefit from continued physical therapy for training and education of self PF stretching with a dilator and self management of her PF pain/bowel management. Physical Therapy Plan Frequency and Duration Frequency of Treatment 1x/Week Duration of Treatment 5 visits Plan of Care Start Date 02/10/21 Plan of Care End Date 05/11/21 Therapeutic Interventions Therapeutic Interventions Home Exercise Program,Joint Mobilizations,Manual Therapy, Patient/Caregiver Education, Self-Care/Home Management,Soft Tissue Mobilization, Therapeutic Activities, Therapeutic Exercises Other Therapeutic Interventions Aquatic therapy when available and when appropriate. Next Visit Focus/Plan Next Note Type Treatment Note Next Visit Plan Assess trunk mobility. Review HEP: Ilipsoas stretch. Add self stretch to PF with dilator. Decrease L hip pain with S/CS treatment and STM of Ilipsoas, as needed. Pt may need mobilization of lower abdomen on L side to help decrease episodes of constipation. As needed STM of TrP treatment to posterior PF (rectal) & lateral PF, but progress the pt to independence stretching. DC when pt is independent and managing her bowels and pain. Plan of Care Dates Plan of Care Start Date 02/10/21 Plan of Care End Date 05/11/21 Electronically Signed by: Zenaida Shepherd, PT 02/10/21 1130 Please Sign and Return: I have reviewed this Plan of Care and certify that the skilled therapy services above are required to meet the patient?s needs. Physician Signature Date Printed Name and Credentials Clinical Instructor Signature Printed Name and Credentials
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
== END 2021-02-23 09:13 ==
LOC: PHYS 15:00
PROVIDERS: PCP Student in an Organized Health Care Education/Training Program; Referring Provider Student in an Organized Health Care Education/Training Program; Visit Provider Student in an Organized Health Care Education/Training Program
DX: M53.3 Sacrococcygeal disorders, not elsewhere classified (principal); R10.2 Pelvic and perineal pain; K59.01 Slow transit constipation; M25.559 Pain in unspecified hip; R29.3 Abnormal posture
CPT/HCPCS: 97110; 97140; 97162; 97535

== ENCOUNTER → 2022-01-26 11:00 | Outpatient (CLI) | payer MEDICARE, MEDICAID, SELFPAY ==
[2022-01-26 11:31] LABS: Add Manual Diff / Slide Review NO; Basophils Absolute Auto 100 /uL (0-100); Basophils Percent Auto 0.8 % (0-2); Eosinophils Absolute Auto 100 /uL (0-450); Eosinophils Percent Auto 0.7 % (2-4); Hematocrit 41.7 % (36-46); Lymphocytes Absolute Auto 1700 /uL (1100-4500); Lymphocytes Percent Auto 21.8 % (25-40); Mean Corpuscular HGB Conc 33.6 % (30-36); Mean Corpuscular Hemoglobin 30.1 PG (26-34); Mean Corpuscular Volume 89.5 fL (80-100); Monocytes Absolute Auto 500 /uL (0-900); Monocytes Percent Auto 6.2 % (3-14); Neutrophils Absolute Auto 5500 /uL (1500-7000); Neutrophils Percent Auto 70.5 % (50-75); Platelet Count 218 X10^3/uL (150-400); Red Blood Cell Count 4.65 X10^6/uL (4.0-5.2); Red Cell Distribution Width 14.8 % (11.6-14.8); White Blood Cell Count 7.8 X10^3/uL (4.5-11.0)
[2022-01-26 11:48] LABS: Alanine Aminotransferase 17 IU/L (<35); Albumin 4.1 g/dL (3.5-5.0); Albumin Globulin Ratio 1.5 (1.0-2.8); Alkaline Phosphatase 120 U/L (38-126); Aspartate Aminotransferase 24 IU/L (14-36); Bilirubin Total 0.4 mg/dL (0.2-1.3); Blood Urea Nitrogen 13 mg/dL (7-17); Carbon Dioxide 28 mmol/L (22-32); Chloride 107 mmol/L (98-107); Estimated Glomerular Filt Rate > 60 mL/min (>60); Globulin 2.8 g/dL (1.7-4.1); Glucose 112 mg/dL (80-110); HEMOLYSIS < 15 (0-50); Sodium 141 mmol/L (137-145); Total Protein 6.9 g/dL (6.3-8.2)
[2022-01-26 12:25] LABS: TSH w/ Reflex to FT4 1.77 uIU/mL (0.47-4.68)
== END ==
PROVIDERS: PCP Student in an Organized Health Care Education/Training Program; Referring Provider Psychiatry & Neurology Psychiatry; Visit Provider Psychiatry & Neurology Psychiatry
DX: Z51.81 Encounter for therapeutic drug level monitoring (principal); F43.10 Post-traumatic stress disorder, unspecified
CPT/HCPCS: 36415; 80053; 84443; 85025; 99214

== ENCOUNTER 2023-01-06 18:57 | Emergency (ER) | payer MEDICARE, MEDICAID, SELFPAY ==
[2023-01-06 19:40] VITALS: BP 109/64; PULSE 67; RESP 18; TEMP 36.6; O2SAT 97; BMI 27.9
--- NOTE | 2023-01-06 19:47 | DI.RAD.S_ITS ---
PROCEDURE: XR CHEST 1V INDICATIONS: chest pain TECHNIQUE: One view of the chest was acquired. COMPARISON: [facility], CR, XR CHEST 2V, 12/27/2019, 9:59. FINDINGS: Surgical changes and devices: None. Lungs and pleura: Lungs are clear. No pleural effusions or pneumothorax. Mediastinum: Mediastinal contours appear normal. Heart size is normal. Bones and chest wall: No suspicious bony lesions. Overlying soft tissues appear unremarkable. IMPRESSION: 1. No acute cardiopulmonary disease. Dictated by: Corey Gaona M.D. on 01/06/2023 at 20:18 Approved by: Corey Gaona M.D. on 01/06/2023 at 20:18
[2023-01-06 19:48] VITALS: BP 109/64; BP 96/69; PULSE 75; PULSE 78
[2023-01-06 20:22] LABS: Add Manual Diff / Slide Review NO; Basophils Absolute Auto 100 /uL (0-100); Basophils Percent Auto 0.7 % (0-2); Eosinophils Absolute Auto 100 /uL (0-450); Eosinophils Percent Auto 0.4 % (2-4); Hematocrit 43.2 % (36-46); Hemoglobin 14.5 g/dL (12.0-16.0); Lymphocytes Absolute Auto 3100 /uL (1100-4500); Lymphocytes Percent Auto 22.3 % (25-40); Mean Corpuscular HGB Conc 33.7 % (30-36); Mean Corpuscular Hemoglobin 30.2 PG (26-34); Mean Corpuscular Volume 89.5 fL (80-100); Monocytes Absolute Auto 600 /uL (0-900); Monocytes Percent Auto 4.7 % (3-14); Neutrophils Absolute Auto 9800 /uL (1500-7000); Neutrophils Percent Auto 71.9 % (50-75); Red Blood Cell Count 4.82 X10^6/uL (4.0-5.2); White Blood Cell Count 13.7 X10^3/uL (4.5-11.0)
[2023-01-06 20:41] LABS: Alanine Aminotransferase 22 IU/L (<35); Albumin Globulin Ratio 1.3 (1.0-2.8); Alkaline Phosphatase 110 U/L (38-126); Aspartate Aminotransferase 27 IU/L (14-36); Bilirubin Total 0.6 mg/dL (0.2-1.3); Blood Urea Nitrogen 12 mg/dL (7-17); Calcium 8.7 mg/dL (8.4-10.2); Carbon Dioxide 24 mmol/L (22-32); Chloride 108 mmol/L (98-107); Creatine Kinase 85 U/L (30-135); Estimated Glomerular Filt Rate > 60 mL/min (>60); Globulin 3.1 g/dL (1.7-4.1); Glucose 94 mg/dL (80-110); Lipase 910 U/L (23-300); Magnesium 2.1 mg/dL (1.6-2.3); Potassium 4.2 mmol/L (3.4-5.1); Sodium 140 mmol/L (137-145); Total Protein 7.1 g/dL (6.3-8.2)
[2023-01-06 20:42] LABS: HEMOLYSIS 57 (0-50)
[2023-01-06 20:43] LABS: COVID19 -Nasal RAPID Negative (Negative)
[2023-01-06 20:47] LABS: Platelet Count 193 X10^3/uL (150-400)
[2023-01-06 20:53] LABS: Troponin I < 0.012 ng/mL (0.01-0.034)
--- NOTE | 2023-01-06 21:10 | PC.NURSE ---
PT in bathroom and snagged IV causing accidental removal of catheter from right ac. Tip in tact
[2023-01-06 21:31] VITALS: BP 128/80; PULSE 58; RESP 18; O2SAT 98
== END 2023-01-06 22:16 | disposition left against medical advice (07) ==
LOC: ED 22:14 → LAB 03-29 14:39
PROVIDERS: Emergency Provider Emergency Medicine; PCP Family Medicine; Referring Provider Student in an Organized Health Care Education/Training Program
DX: R42 Dizziness and giddiness (principal); R07.9 Chest pain, unspecified; Z20.822 Contact with and (suspected) exposure to COVID-19; R74.8 Abnormal levels of other serum enzymes
CPT/HCPCS: 36415; 71045; 80053; 82550; 83690; 83735; 84484; 85025; 87635; 99282; C9803

== ENCOUNTER → 2023-01-19 14:58 | Outpatient (CLI) | payer MEDICARE, MEDICAID, SELFPAY | PROVIDERS: PCP Student in an Organized Health Care Education/Training Program; Referring Provider Student in an Organized Health Care Education/Training Program; Visit Provider Student in an Organized Health Care Education/Training Program | DX: R00.2 Palpitations (principal); R55 Syncope and collapse | CPT/HCPCS: 93242 ==

== ENCOUNTER → 2023-03-01 12:54 | Outpatient (CLI) | payer MEDICARE, MEDICAID, SELFPAY ==
--- NOTE | 2023-03-01 12:56 | DI.RAD.S_ITS ---
PROCEDURE: XR CERVICAL SPINE 2V OR 3V INDICATIONS: assess for DDD/spinal arthritic spurs TECHNIQUE: 3 view(s) of the cervical spine were acquired. COMPARISON: None. FINDINGS: Bones: No fractures or dislocations to the C7 level. The lateral masses of C1 appear intact on the odontoid view. No suspicious bony lesions. Mild C5-C6 degenerative disc disease. Mild facet hypertrophy throughout the cervical spine. Mild bilateral C3-C4, C4-C5 and C5-C6 uncovertebral hypertrophy. Soft tissues: No prevertebral soft tissue swelling. IMPRESSION: 1. C5-C6 degenerative disc disease. 2. Multilevel facet and uncovertebral arthropathy. 3. No fracture. No acute osseous lesion. If symptoms and/or clinical suspicion for pathology persists, evaluation with MRI should be considered for further assessment. Dictated by: Magdalene Mcdonald MD, PhD on 03/01/2023 at 13:49 Approved by: Magdalene Mcdonald MD, PhD on 03/01/2023 at 13:51
== END ==
PROVIDERS: PCP Student in an Organized Health Care Education/Training Program; Referring Provider Pediatrics; Visit Provider Pediatrics
DX: M50.322 Other cervical disc degeneration at C5-C6 level (principal); M47.812 Spondylosis without myelopathy or radiculopathy, cervical region; M54.9 Dorsalgia, unspecified
CPT/HCPCS: 72040

== ENCOUNTER → 2023-03-28 16:18 | Outpatient (CLI) | payer MEDICARE, MEDICAID, SELFPAY ==
[2023-03-28 17:09] LABS: Add Manual Diff / Slide Review NO; Basophils Absolute Auto 100 /uL (0-100); Basophils Percent Auto 0.9 % (0-2); Eosinophils Absolute Auto 0 /uL (0-450); Eosinophils Percent Auto 0.5 % (2-4); Hematocrit 41.9 % (36-46); Hemoglobin 14.3 g/dL (12.0-16.0); Lymphocytes Absolute Auto 2400 /uL (1100-4500); Lymphocytes Percent Auto 26.3 % (25-40); Mean Corpuscular HGB Conc 34.1 % (30-36); Mean Corpuscular Hemoglobin 30.7 PG (26-34); Mean Corpuscular Volume 89.9 fL (80-100); Monocytes Absolute Auto 400 /uL (0-900); Monocytes Percent Auto 4.8 % (3-14); Neutrophils Absolute Auto 6300 /uL (1500-7000); Neutrophils Percent Auto 67.5 % (50-75); Platelet Count 211 X10^3/uL (150-400); Red Blood Cell Count 4.65 X10^6/uL (4.0-5.2); Red Cell Distribution Width 14.3 % (11.6-14.8); White Blood Cell Count 9.3 X10^3/uL (4.5-11.0)
[2023-03-28 17:16] LABS: Alanine Aminotransferase 17 IU/L (<35); Albumin Globulin Ratio 1.3 (1.0-2.8); Alkaline Phosphatase 119 U/L (38-126); Aspartate Aminotransferase 25 IU/L (14-36); Bilirubin Total 0.5 mg/dL (0.2-1.3); Blood Urea Nitrogen 12 mg/dL (7-17); Calcium 8.6 mg/dL (8.4-10.2); Carbon Dioxide 29 mmol/L (22-32); Chloride 108 mmol/L (98-107); Estimated Glomerular Filt Rate > 60 mL/min (>60); Glucose 93 mg/dL (80-110); HEMOLYSIS < 15 (0-50); Lipase 72 U/L (23-300); Potassium 3.8 mmol/L (3.4-5.1); Sodium 142 mmol/L (137-145)
== END ==
PROVIDERS: Family Provider Student in an Organized Health Care Education/Training Program; PCP Family Medicine; Referring Provider Pediatrics; Visit Provider Pediatrics
DX: R42 Dizziness and giddiness (principal)
CPT/HCPCS: 36415; 80053; 83690; 85025

== ENCOUNTER 2023-04-03 22:12 | Emergency (ER) | payer MEDICARE, MEDICAID, SELFPAY ==
[2023-04-03 22:24] VITALS: BP 135/78; PULSE 80; RESP 18; TEMP 36.3; O2SAT 99; BMI 189.7
--- NOTE | 2023-04-04 02:28 | ED_ITS ---
HPI - Back Pain/Injury General Chief Complaint: Back Pain/Injury Stated Complaint: Low BP, Knot on neck Time Seen by Provider: 04/04/23 02:27 Source: patient Mode of arrival: Ambulatory Limitations: no limitations History of Present Illness HPI Narrative: 62-year-old female with history of chronic pain, PTSD, restless leg, GERD and dyslipidemia who presents with complaint of swelling and some redness in his comfort of her neck that has been going on for several weeks. Patient states she saw her physician she had an x-ray of her neck with her mouth open and was told she had degenerative changes to follow up for an MRI. Patient states her physician is in process of setting this up. She presents today with multiple complaints states this is still present it is slightly worse, she states it is not better. She states it still is uncomfortable. She denies any fevers or chills. She notes she sometimes feels very lightheaded like she might pass out. Sometimes it is seated or lying but typically she is standing. She will have to lay down on the floor and it takes about 15 minutes and then will pass. She states she will feel sweaty she denies chest pain, she does not feel short of breath but will feel nauseated. She does not typically vomit. She denies any new changes to bowel movements she gets diarrhea and constipation intermittently. She denies any active urinary symptoms. She has not had any hoarseness, change in her voice. She does not no new lumps in her neck other than the ones that have been present. Patient states her blood pressures typically low at 120 sometimes as low as 104. She was quite distressed that it was 130 today on readings. Patient is unsure if her heart rate normally runs low but thinks that it does. She states that she takes tizanidine, gabapentin, tramadol as well as diazepam. She takes a statin daily. Who states she is allergic to penicillin. She is a former smoker, denies regular alcohol use. No recreational drugs. Her primary care was Dr. Stewart who recently left abruptly, she saw Dr. Siu in the interim and is supposed to formally establish with Dr. Weaver as her primary care. Related Data Home Medications Medication Instructions Recorded Confirmed Lactobacillus acidophilus 10 See Rx Instructions .Route .COMPLEX 03/07/20 03/28/23 billion cell capsule calcium carbonate 500 mg-vitamin 1 tab PO DAILY 03/07/20 03/28/23 D3 10 mcg (400 unit) tablet multivitamin 1 tab PO DAILY 12/05/20 03/28/23 Previous Rx's Medication Instructions Recorded albuterol sulfate 90 mcg/actuation 2 puff inhalation Q4-6H PRN 10/12/21 aerosol inhaler shortness of breath or wheezing #18 grams triamcinolone acetonide 0.1 % 1 applic topical BID PRN rash #30 10/13/21 topical cream grams tizanidine 4 mg tablet 8 mg PO TID PRN muscle spasticity 02/16/22 #180 tabs atorvastatin 40 mg tablet 40 mg PO HS #90 tabs 10/29/22 diazepam 5 mg tablet 5 mg PO BID-TID PRN muscle spasm 12/29/22 #60 tabs fluticasone propionate 50 1 spray intranasal SEE 12/29/22 mcg/actuation nasal INSTRUCTIONS PRN allergy symptoms spray,suspension ##1 gabapentin 300 mg capsule 600 mg PO TID #540 caps 01/04/23 (Neurontin) mirtazapine 30 mg tablet 30 mg PO BEDTIME #90 tabs 01/17/23 venlafaxine 75 mg capsule,extended 75 mg PO DAILY #90 caps 03/10/23 release 24 hr ondansetron HCl 4 mg tablet 4 mg PO QID PRN nausea and 03/28/23 vomiting #30 tabs tramadol 50 mg tablet 50 mg PO TID PRN pain #30 tabs 03/28/23 sulfamethoxazole 800 1 tab PO BID #10 tabs 04/04/23 mg-trimethoprim 160 mg tablet (Bactrim DS) Allergies Allergy/AdvReac Type Severity Reaction Status Date / Time Penicillins [PENICILLINS] Allergy Unknown Verified 03/28/23 14:22 Review of Systems Review of Systems ROS Unobtainable: All systems reviewed & are unremarkable except as noted in HPI and below Patient History Medical History Breast cancer (Unknown) Carpal tunnel syndrome (1981) Chickenpox (1969) Dizziness Hyperlipemia (Unknown) Hypotension (11/22/17) Lumbosacral neuritis (Unknown) Migraines (Unknown) Mumps (1969) Plantar fibromatosis (Unknown) PTSD (post-traumatic stress disorder) (Unknown) Restless leg syndrome (Unknown) Skin cancer (melanoma) (Unknown) Vomiting Surgical History History of carpal tunnel release (1981) Hx of tubal ligation (1985) Family History Father Cancer Mother No problems noted. Sister No problems noted. Social History Smoking Status: Former smoker alcohol intake: never substance use type: does not use Smoking Status: Former smoker Substance Use Type: does not use Exam Narrative Exam Narrative: GEN: well nourished, well appearing female, alert and oriented x 3, patient appears to be in mild distress. HEENT: Atraumatic, pupils are equal round reactive to light, extraocular movements are intact, nares are clear, TMs are clear with no fluid, there is no conjunctival pallor. Throat is clear without any exudates, erythema, tonsillar enlargement or uvular deviation, patient has some slight swelling and erythema over the right neck, no palpable lymphadenopathy. Patient has no bony tenderness. Patient has some poor dentition but no obvious swelling or changes to the teeth. Redness is on the right lateral neck and does not extend over the cheek or jaw. She has full range of motion. HEART: Bradycardic but Regular rate and rhythm without murmur, clicks, rubs. Pulses are equal in upper and lower extremities LUNGS:Lungs clear to auscultation, no wheezes, rales, crackles, chest moves symmetrically, no tachypnea accessory muscle use. ABD:bowel sounds normal, soft, non-tender, no guarding, rebound, rigidity, no masses noted, no hepatosplenomegaly :No CVA tenderness MSCL: Non-tender, no muscle atrophy, muscles strength 5/5 upper and lower extremities, full range of motion, normal gait NEURO:CN 2-12 intact, sensation normal SKIN: Other than noted above no other rashes, no vesicles, no lesions or lacerations noted. Initial Vital Signs Initial Vital Signs: Vital Signs Temperature 97.3 F L 04/03/23 22:24 Pulse Rate 80 04/03/23 22:24 Respiratory Rate 18 04/03/23 22:24 Blood Pressure 135/78 04/03/23 22:24 Pulse Oximetry 99 04/03/23 22:24 Oxygen Delivery Method Room Air 04/03/23 22:24 Course Orders Ordered: ED Orders 04/04/23 EKG-12 Lead Routine 04/04/23 02:44 XR chest 1V Stat EKG-12 Lead Stat 04/04/23 03:33 Complete Blood Count AUTO DIFF Stat Comprehensive Metabolic Panel Stat Lipase Stat Troponin & CK Cardiac Panel Stat Discontinued Medications Acetaminophen (Acetaminophen 325 Mg Tablet) 975 mg PO NOW ONE Stop: 04/04/23 04:03 Last Admin: 04/04/23 04:32 Dose: 975 mg Documented By: WILL Vital Signs Vital signs: Vital Signs - 8 hr 04/04/23 04:52 04/04/23 04:53 04/04/23 04:53 Pulse Rate 53 L Respiratory Rate 16 Blood Pressure 133/72 Pulse Oximetry 97 98 Oxygen Delivery Method Room Air MDM - Back Pain/Injury Lab Data 04/04/23 03:33 04/04/23 03:33 Labs: Lab Results 04/04/23 04/04/23 Range/Units 03:33 03:33 WBC 8.4 (4.5-11.0) X10^3/uL RBC 4.68 (4.0-5.2) X10^6/uL Hgb 14.3 (12.0-16.0) g/dL Hct 41.9 (36-46) % MCV 89.5 (80-100) fL MCH 30.6 (26-34) PG MCHC 34.2 (30-36) % RDW 14.3 (11.6-14.8) % Plt Count 199 (150-400) X10^3/uL Neut % (Auto) 51.4 (50-75) % Lymph % (Auto) 39.2 (25-40) % [place] % (Auto) 6.9 (3-14) % Eos % (Auto) 1.4 L (2-4) % Baso % (Auto) 1.1 (0-2) % Neut # (Auto) 4300 (6224-5250) /uL Lymph # (Auto) 3300 (2640-4957) /uL [place] # (Auto) 600 (0-900) /uL Eos # (Auto) 100 (0-450) /uL Baso # (Auto) 100 (0-100) /uL Sodium 141 (137-145) mmol/L Potassium 3.3 L (3.4-5.1) mmol/L Chloride 107 (98-107) mmol/L Carbon Dioxide 30 (22-32) mmol/L BUN 11 (7-17) mg/dL Creatinine 0.79 (0.52-1.04) mg/dL Estimated GFR > 60 (>60) mL/min BUN/Creatinine Ratio 13.9 (6-22) Glucose 95 (80-110) mg/dL Calcium 8.7 (8.4-10.2) mg/dL Total Bilirubin 0.6 (0.2-1.3) mg/dL AST 21 (14-36) IU/L ALT 16 (<35) IU/L Alkaline Phosphatase 134 H (38-126) U/L Total Creatine Kinase 52 (30-135) U/L Troponin I < 0.012 (0.01-0.034) ng/mL Total Protein 7.3 (6.3-8.2) g/dL Albumin 4.0 (3.5-5.0) g/dL Globulin 3.3 (1.7-4.1) g/dL Albumin/Globulin Ratio 1.2 (1.0-2.8) Lipase 1278 H D (23-300) U/L Imaging Data Chest x-ray: My Impression: no acute process noted. ECG Data Attestation: I personally reviewed and interpreted this ECG as follows: Prior ECG tracings: available for review Interpretation: EKG1. Sinus bradycardia with sinus arrhythmia rate of 52 HI 196 QRS 92 and QTC of 416. No acute ST changes appreciated. EKG2. Sinus bradycardia rate of 48, HI 196 QRS 88 QTC of 409. No acute ST elevation depression. Patient has prior from 08/10/2017 that appears similar to today's that time her heart rate was 49 with a HI 168 QRS of 90 in sinus bradycardia and ST segments appeared similar. [facility] Narrative Medical decision making narrative: This is a 62-year-old female who comes in with her main complaint being some swelling of her neck, she does have some slight redness she be developing a little bit of cellulitis that has been going on for several weeks there is no obvious lymphadenopathy or palpable mass. She does not appear to have any dental infection. Patient's neck exam is overall benign. She is noted to be bradycardic she was unsure if she has been bradycardia but on review of her chart she is an EKG from 2017 with heart rate in the 40s and appears to run bradycardic quite frequently. She does not appear to be on any medications to cause her bradycardia. She is on multiple medications that could potentially make her feel lightheaded in addition to this. Patient's potassium was slightly low at 3.3 renal function electrolytes were normal troponin was negative she is not had any chest pain or pressure. Lipase is 1278, patient has not been complaining of any abdominal discomfort. Chest x-ray shows no acute change. Discussed today's findings with patient, She does appear to have a little bit of mild cellulitis over her neck no palpable mass or lymphadenopathy that I truly appreciate. She was noting some lightheadedness and near syncopal type episodes and was bradycardic blood pressure here has been pretty appropriate, potassium slightly low at 3.3 her EKG does show sinus bradycardia sometimes in the 40s but appears she is been in that range since at least 2017. She has not had any 2nd or third-degree heart block here on telemetry. Patient had a ZIOpatch in January. Discussed may need repeat if symptoms persisting. She is noted to have an elevated lipase when we discussed patient denies any abdominal pain. She has not had any nausea or vomiting she is been asymptomatic. Discussed need for follow-up for repeat lipase level and if still elevated imaging. Discharge Plan Departure Patient Disposition: Home Clinical Impression: Elevated lipase, Cellulitis of neck Activity Restrictions/Additional Instructions: Follow-up with your physician you are lipase or pancreatic enzyme is elevated today, talk with your physician to have it rechecked if you are developing abdominal pain nausea vomiting or your lipase level is staying elevated they may pursue some additional imaging of your abdomen. There is a little bit of redness and swelling on the right side of her neck I suspect you have a little bit of cellulitis or infection developing. Please take antibiotic until gone. Prescription sent to [facility] pharmacy in [place]. You can take Tylenol up to a 1000 mg every 6 hours as needed for pain. Please return for fevers, rapidly worsening redness or swelling, new chest pain, nausea or vomiting, black or bloody stools, passing out or other new or concerning changes. Prescriptions: New sulfamethoxazole-trimethoprim [Bactrim DS] 800-160 mg tablet 1 tab PO BID Qty: 10 0RF No Action venlafaxine 75 mg capsule,extended release 24hr 75 mg PO DAILY Qty: 90 3RF multivitamin Tablet 1 tab PO DAILY albuterol sulfate 90 mcg/actuation HFA aerosol inhaler 2 puff INHALATION Q4-6H PRN (Reason: shortness of breath or wheezing) Qty: 18 11RF triamcinolone acetonide 0.1 % cream 1 applic TOP BID PRN (Reason: rash) Qty: 30 0RF Rx Instructions: Apply to fingers twice daily as needed tizanidine 4 mg tablet 8 mg PO TID PRN (Reason: muscle spasticity) Qty: 180 5RF Patient Comments: usually twice a day atorvastatin 40 mg tablet 40 mg PO HS Qty: 90 3RF fluticasone propionate 50 mcg/actuation spray,suspension 1 spray intranasal SEE INSTRUCTIONS PRN (Reason: allergy symptoms) Qty: 1 11RF diazepam 5 mg tablet 5 mg PO BID-TID PRN (Reason: muscle spasm) Qty: 60 5RF Rx Instructions: Must last 30 days gabapentin [Neurontin] 300 mg capsule 600 mg PO TID Qty: 540 1RF mirtazapine 30 mg tablet 30 mg PO BEDTIME Qty: 90 1RF ondansetron HCl 4 mg tablet 4 mg PO QID PRN (Reason: nausea and vomiting) Qty: 30 0RF tramadol 50 mg tablet 50 mg PO TID PRN (Reason: pain) Qty: 30 0RF Rx Instructions: 1 tablet every 6-8 hours as needed for severe pain not relieved with other measures. Limit as possible and avoid if vomiting or sick in any other way until feeling better. Will possibly refill with more after feeling better, but let's see how you do with this for now. calcium carbonate-vitamin D3 500 mg(1,250mg) -400 unit tablet 1 tab PO DAILY Lactobacillus acidophilus 10 billion cell capsule See Rx Instructions .ROUTE .COMPLEX Rx Instructions: 1-2 caps PO daily; Referrals: Kalia Weaver DO [Primary Care Provider] - Stand Alone Forms: Patient Portal/API
--- NOTE | 2023-04-04 02:44 | DI.RAD.S_ITS ---
PROCEDURE: XR CHEST 1V INDICATIONS: low HR TECHNIQUE: One view of the chest was acquired. COMPARISON: [facility], CR, XR CHEST 1V, 01/06/2023, 19:59. FINDINGS: Surgical changes and devices: None. Lungs and pleura: Lungs are clear. No pleural effusions or pneumothorax. Mediastinum: Mediastinal contours appear normal. Heart size is normal. Bones and chest wall: No suspicious bony lesions. Overlying soft tissues appear unremarkable. IMPRESSION: No evidence acute pulmonary process. Comment: Final report is concordant with preliminary interpretation provided by [facility]. Dictated by: Paul Gray M.D. on 04/04/2023 at 8:17 Approved by: Paul Gray M.D. on 04/04/2023 at 8:18
[2023-04-04 03:53] LABS: Add Manual Diff / Slide Review NO; Basophils Absolute Auto 100 /uL (0-100); Basophils Percent Auto 1.1 % (0-2); Eosinophils Absolute Auto 100 /uL (0-450); Eosinophils Percent Auto 1.4 % (2-4); Hematocrit 41.9 % (36-46); Hemoglobin 14.3 g/dL (12.0-16.0); Lymphocytes Absolute Auto 3300 /uL (1100-4500); Lymphocytes Percent Auto 39.2 % (25-40); Mean Corpuscular HGB Conc 34.2 % (30-36); Mean Corpuscular Hemoglobin 30.6 PG (26-34); Mean Corpuscular Volume 89.5 fL (80-100); Monocytes Absolute Auto 600 /uL (0-900); Monocytes Percent Auto 6.9 % (3-14); Neutrophils Absolute Auto 4300 /uL (1500-7000); Neutrophils Percent Auto 51.4 % (50-75); Platelet Count 199 X10^3/uL (150-400); Red Blood Cell Count 4.68 X10^6/uL (4.0-5.2); Red Cell Distribution Width 14.3 % (11.6-14.8); White Blood Cell Count 8.4 X10^3/uL (4.5-11.0)
[2023-04-04 04:00] LABS: Alanine Aminotransferase 16 IU/L (<35); Albumin Globulin Ratio 1.2 (1.0-2.8); Alkaline Phosphatase 134 U/L (38-126); Aspartate Aminotransferase 21 IU/L (14-36); BUN Creatinine Ratio 13.9 (6-22); Bilirubin Total 0.6 mg/dL (0.2-1.3); Blood Urea Nitrogen 11 mg/dL (7-17); Calcium 8.7 mg/dL (8.4-10.2); Carbon Dioxide 30 mmol/L (22-32); Chloride 107 mmol/L (98-107); Creatine Kinase 52 U/L (30-135); Estimated Glomerular Filt Rate > 60 mL/min (>60); Globulin 3.3 g/dL (1.7-4.1); Glucose 95 mg/dL (80-110); HEMOLYSIS < 15 (0-50); Lipase 1278 U/L (23-300); Potassium 3.3 mmol/L (3.4-5.1); Sodium 141 mmol/L (137-145); Total Protein 7.3 g/dL (6.3-8.2)
[2023-04-04 04:11] LABS: Troponin I < 0.012 ng/mL (0.01-0.034)
[2023-04-04] MEDS: ACETAMINOPHEN 325 MG TABLET 975 MG PO (04:32)
[2023-04-04 04:52] VITALS: O2SAT 97
[2023-04-04 04:53] VITALS: BP 133/72; PULSE 53; RESP 16; O2SAT 98
== END 2023-04-04 05:03 | disposition home or self-care (01) ==
PROVIDERS: Emergency Provider Emergency Medicine; Family Provider Student in an Organized Health Care Education/Training Program; PCP Family Medicine
DX: L03.221 Cellulitis of neck (principal); R74.8 Abnormal levels of other serum enzymes; R03.1 Nonspecific low blood-pressure reading; R00.1 Bradycardia, unspecified
CPT/HCPCS: 36415; 71045; 80053; 82550; 83690; 84484; 85025; 93005; 93010; 99284

== ENCOUNTER 2023-06-01 15:15 | Outpatient (RCR) | payer MEDICARE, MEDICAID, SELFPAY ==
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
--- NOTE | 2023-04-21 13:43 | PT.OPPOC ---
Physical, Occupational & Speech Therapy At [facility] Current Diagnoses Cervicalgia (04/21/23) Visit Care Team Role Provider Type Kalia Weaver DO Primary Care Provider Physician Specialty: Family Practice Address: [address] [place] [address] Email: [email or web address] Murtaza Segura MD Family Provider Physician Specialty: Internal Medicine Address: [address] [place] [address], [address] [address] Email: [email or web address] Howard Fraser MD Attending Provider Physician Referring Provider Specialty: Internal Medicine Pediatrics Address: [address] [place] [address] Email: [email or web address] Plan Of Care PT-OP-T Assessment and Plan Start: 04/21/23 13:24 Freq: Status: Active Protocol: Document 04/21/23 13:26 ED (Rec: 04/21/23 13:38 ED [id number]) Physical Therapy Assessment Rehab Potential Rehabilitation Potential Fair Evaluation Complexity Number of Personal Factors/Comorbidities 3 or More Number of Body Systems Impaired 3 Clinical Presentation at Evaluation Evolving Impairments Impairments Activity Tolerance,Functional Activities,Pain,ROM,Soft Tissue Mobility Goals Three Impairment Pain Short Term Goal (STG) Pt will report 25% improvement in cervical pain. STG Duration 3 weeks Mcc Goal (LTG) Pt will report 50% improvement in cervical pain. LTG Duration 6 weeks Two Impairment ROM Short Term Goal (STG) Pt will improve cervical rotation ROM to or above 45 degrees bilaterally STG Duration 3 weeks Forms Analysis Manager Goal (LTG) Pt will improve cervical rotation ROM to or above 55 degrees bilaterally LTG Duration 6 weeks HEP Impairment HEP Short Term Goal (STG) Pt will report performing HEP 4 days/week. STG Duration 2 weeks Mcc Goal (LTG) Pt will report performing HEP 4 days/week. LTG Duration 6 weeks Assessment Summary Assessment Pt reported to PT c/ complaints of neck pain. Pt perservated on other maladies including bone spurs, blacking out, vomiting, and drastic changes in blood pressure. PT discussed that many of the ailments she is reporting are better suited for her PCP as they can address more systemic diseases; PT informed her that physical therapy is specifically for musculoskeletal and neuromuscular impairments. Pt did demonstrate overall reduced cervical ROM and strength and was given exercises to help improve those. These included : cervical SNAGs, seated thoracic rotation, seated lumbar flexion, and seated cervical extension. Pt able to do all exercises today c/o increased pain or discomfort. PT informed patient to start with a small number of repetitions and gradually build. Physical Therapy Plan Frequency and Duration Frequency of Treatment 1x/Week Duration of treatment (weeks) 10 Plan of Care Start Date 04/21/23 Plan of Care End Date 07/20/23 Therapeutic Interventions Therapeutic Interventions Home Exercise Program,Joint Mobilizations,Manual Therapy, Neuromuscular Re-education, Patient/Caregiver Education, Self-Care/Home Management,Soft Tissue Mobilization,Taping, Therapeutic Activities, Therapeutic Exercises Modalities Biofeedback,Cold Pack/Ice Massage,Electric Stimulation, Hot Packs,Ultrasound Next Visit Focus/Plan Next Note Type Treatment Note Next Visit Plan room, HEP (SNAGs, thoracic rotation, lumbar flexion, elbows propped cervical extension), neck isometrics, thoracic mobility; hyperthyroid? Plan of Care Dates Plan of Care Start Date 04/21/23 Plan of Care End Date 07/20/23 Electronically Signed by: Anthony Brandt, PT 04/21/23 2511 If you are in agreement with this Plan of Care, please return a signed and dated copy. I have reviewed this Plan of Care and certify that the skilled therapy services above are required to meet the patient?s needs. Physician Signature Date Printed Name and Credentials Clinical Instructor Signature Printed Name and Credentials
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
== END 2023-06-03 09:04 | disposition home or self-care (01) ==
LOC: PHYS 15:15
PROVIDERS: Family Provider Student in an Organized Health Care Education/Training Program; PCP Family Medicine; Referring Provider Pediatrics; Visit Provider Pediatrics
DX: M54.2 Cervicalgia (principal)
CPT/HCPCS: 97110; 97140; 97162

== ENCOUNTER 2024-01-17 14:30 | Outpatient (RCR) | payer MEDICARE, MEDICAID, SELFPAY ==
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
== END 2024-06-26 10:21 | disposition home or self-care (01) ==
LOC: PHYS 14:30
PROVIDERS: Family Provider Family Medicine; PCP Family Medicine; Referring Provider Otolaryngology; Visit Provider Otolaryngology
DX: H81.4 Vertigo of central origin (principal); R42 Dizziness and giddiness; M54.2 Cervicalgia; M25.69 Stiffness of other specified joint, not elsewhere classified
CPT/HCPCS: 97012; 97110; 97140; 97163

== ENCOUNTER → 2024-02-03 11:17 | Outpatient (CLI) | payer MEDICARE, MEDICAID, SELFPAY ==
--- NOTE | 2024-02-03 11:19 | DI.MRI.S_ITS ---
PROCEDURE: MR LUMBAR SPINE WO CON INDICATIONS: Radiculopathy, lumbar region TECHNIQUE: Noncontrast sagittal T1 spin echo and T2 fast echo, sagittal STIR, and T2 fast spin echo through the lumbar spine. In cases with scoliosis, additional coronal T2 fast spin echo may be performed. COMPARISON: [facility], MR, MR LUMBAR SPINE WO CON, 02/06/2021, 18:23. FINDINGS: Image quality: Excellent. Alignment and Curvature: There is normal bony alignment. Bone Marrow: Marrow is of normal overall signal. No acute vertebral body compression fractures. Spinal Cord: Conus medullaris terminates at the L1 level. Visualized cord demonstrates normal signal and size. 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 Paraspinous Soft Tissues: No paravertebral masses. Discs: Minimal desiccation is present L3-4, L4-5. T12-L1: No disc bulge, spinal stenosis or foraminal narrowing. No interval change. L1-L2: No disc bulge, spinal stenosis or foraminal narrowing. No interval change. L2-L3: Minimal disc bulge without spinal stenosis or foraminal narrowing. Facet and ligamentum flavum hypertrophy as well as epidural lipomatosis are present. No interval change. L3-L4: Mild disc bulge with minimal canal narrowing. No foraminal narrowing. Facet and ligamentum flavum hypertrophy as well as epidural lipomatosis is present. ligamentum L4-L5: Mild disc bulge with mild spinal stenosis slightly more prominent. No foraminal narrowing. Facet and ligamentum flavum hypertrophy are present. L5-S1: Mild disc bulge without spinal stenosis. Mild bilateral foraminal narrowing with facet hypertrophy. IMPRESSION: Relatively stable exam demonstrating small degrees of interval progression as detailed above. Foraminal narrowing is mild at L5-S1 secondary to facet/ligamentum flavum arthropathy. Dictated by: Margot Mcdonald M.D. on 02/03/2024 at 16:34 Approved by: Margot Mcdonald M.D. on 02/03/2024 at 16:55
== END ==
PROVIDERS: Family Provider Family Medicine; PCP Family Medicine; Referring Provider Physical Medicine & Rehabilitation Pain Medicine; Visit Provider Physical Medicine & Rehabilitation Pain Medicine
DX: M47.27 Other spondylosis with radiculopathy, lumbosacral region (principal); M48.07 Spinal stenosis, lumbosacral region; M51.17 Intervertebral disc disorders with radiculopathy, lumbosacral region; M51.16 Intervertebral disc disorders with radiculopathy, lumbar region; M47.26 Other spondylosis with radiculopathy, lumbar region; M48.061 Spinal stenosis, lumbar region without neurogenic claudication
CPT/HCPCS: 72148

== ENCOUNTER → 2024-03-01 18:21 | Outpatient (CLI) | payer MEDICARE, MEDICAID, SELFPAY ==
--- NOTE | 2024-03-01 18:23 | DI.MRI.S_ITS ---
PROCEDURE: MR CERVICAL SPINE WO CON INDICATIONS: SPINAL STENOSIS TECHNIQUE: Noncontrast sagittal T1 spin echo and T2 fast spin echo, sagittal STIR, foraminal oblique sagittal T2 fast spin echo, and axial gradient echo or T2 fast spin echo through the cervical spine. COMPARISON: [facility], MR, MR CERVICAL SPINE WO CON, 07/06/2019, 14:15. FINDINGS: Image quality: Excellent. Alignment and Curvature: There is normal bony alignment. Bone Marrow: Marrow demonstrates normal overall signal. Increased T1 and T2 signal is present at T2 and T3 most consistent with hemangioma, unchanged. Spinal Cord: Visualized spinal cord has normal size and signal. No cerebellar tonsillar herniation. Paraspinous Soft Tissues: No paravertebral masses. Prevertebral soft tissues are normal in thickness. C2-C3: No disc bulge, spinal stenosis or foraminal narrowing. No interval change. C3-C4: Minimal disc bulge without spinal stenosis. Foraminal narrowing appears minimal on the right and less prominent on the left when compared to prior exam. C4-C5: Mild disc bulge without spinal stenosis. [id number] bilateral foraminal narrowing, right greater than left appearing slightly progressive on the right compared to prior exam. C5-C6: Minimal disc bulge without spinal stenosis or foraminal narrowing. No interval change. C6-C7: No disc bulge, spinal stenosis or foraminal narrowing. No interval change. C7-T1: No disc bulge, spinal stenosis or foraminal narrowing. No interval change. IMPRESSION: Degenerative changes remaining most prominent at C4-5 with slight degree of interval progression of foraminal narrowing on the right. Dictated by: Margot Mcdonald M.D. on 03/02/2024 at 14:50 Approved by: Margot Mcdonald M.D. on 03/02/2024 at 14:56
== END ==
PROVIDERS: Family Provider Family Medicine; PCP Family Medicine; Referring Provider Physical Medicine & Rehabilitation Pain Medicine; Visit Provider Physical Medicine & Rehabilitation Pain Medicine
DX: M48.02 Spinal stenosis, cervical region (principal); M47.812 Spondylosis without myelopathy or radiculopathy, cervical region
CPT/HCPCS: 72141

== ENCOUNTER → 2024-03-29 16:40 | Outpatient (CLI) | payer MEDICARE, MEDICAID, SELFPAY ==
--- NOTE | 2024-03-29 16:41 | DI.MRI.S_ITS ---
PROCEDURE: MR HEAD/BRAIN WO CON INDICATIONS: Pre-syncope Dizziness Vomiting TECHNIQUE: Non-contrast axial T1 spin echo, axial T2 fast spin echo, sagittal and axial FLAIR, coronal T2 fast spin echo, axial gradient echo, axial diffusion and ADC through the brain. COMPARISON: None. FINDINGS: Image quality: Excellent. CSF spaces: Ventricles appear symmetric in size and shape. Basal cisterns are patent. No extra-axial fluid collections. Brain: No intracranial bleeds or mass effects. The brain volume is normal for patient's age. Small number of periventricular and deep white matter chronic small vessel ischemic changes. Brainstem appears normal. Diffusion-weighted images show no acute infarct. No chronic ischemic insults. Normal intravascular flow voids are present. Skull and face: Calvarial bone marrow is normal in signal. Orbits are normal. Sinuses: Sinuses and mastoids are clear. IMPRESSION: 1. No acute infarct, hemorrhage or mass lesions. 2. Small number of white matter changes within the brain which are nonspecific but can be seen in patients with chronic small vessel ischemic changes. Dictated by: Yash Juarez M.D. on 03/30/2024 at 10:35 Approved by: Yash Juarez M.D. on 03/30/2024 at 10:48
== END ==
PROVIDERS: Family Provider Family Medicine; PCP Family Medicine; Referring Provider Family Medicine; Visit Provider Family Medicine
DX: R55 Syncope and collapse (principal); R42 Dizziness and giddiness; R11.10 Vomiting, unspecified
CPT/HCPCS: 70551

== ENCOUNTER → 2024-08-08 12:38 | Outpatient (CLI) | payer MEDICARE, MEDICAID, SELFPAY ==
--- NOTE | 2024-08-08 12:39 | DI.MG.S_ITS ---
BILATERAL DIGITAL SCREENING MAMMOGRAM 3D/2D WITH CAD: 08/08/2024 CLINICAL: Routine screening. New Baseline exam. No prior exams were available for comparison. The breasts are heterogeneously dense, which may obscure small masses (category c / 51-75% glandular tissue). Current study was also evaluated with a Computer Aided Detection (CAD) system. No significant masses, calcifications, or other findings are seen in either breast. IMPRESSION: NEGATIVE There is no mammographic evidence of malignancy. A 1 year screening mammogram is recommended. Based on the Tyrer Cuzick model (a risk assessment model) the patient's lifetime risk is 15.9% and her 10 year risk is 7.5%. According to the ACR, ACS, and NCCN guidelines, an annual breast MRI exam along with mammogram is recommended if the patient's lifetime risk is 20% or greater. This exam was interpreted at Station ID: [id number]. NOTE: For mammograms, a report in lay terms will be sent to the patient. Approximately 15% of breast malignancies will not be visualized mammographically. In the management of a palpable breast mass, a negative mammogram must not discourage biopsy of a clinically suspicious lesion. Electronically Signed By: Zenaida valdez/davonte:08/08/2024 14:37:00 letter sent: Normal Exam ACR BI-RADS Category 1: Negative
== END ==
PROVIDERS: Family Provider Family Medicine; PCP Family Medicine; Referring Provider Family Medicine; Visit Provider Family Medicine
DX: Z12.31 Encounter for screening mammogram for malignant neoplasm of breast (principal); R92.333 Mammographic heterogeneous density, bilateral breasts
CPT/HCPCS: 77063; 77067

== ENCOUNTER 2024-08-09 10:45 | Outpatient (RCR) | payer MEDICARE, MEDICAID, SELFPAY ==
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
--- NOTE | 2024-06-07 16:17 | PT-OP ANOTE ---
Ashwini called in regarding missing her appointment and stated her batteries in her clock stopped working so she didn't realize she was late. She will be at her next appt.
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
== END 2024-08-20 13:44 | disposition home or self-care (01) ==
LOC: PHYS 10:45
PROVIDERS: Family Provider Family Medicine; PCP Family Medicine; Referring Provider Family Medicine; Visit Provider Family Medicine
DX: M70.71 Other bursitis of hip, right hip (principal); M54.17 Radiculopathy, lumbosacral region; M25.551 Pain in right hip; M25.651 Stiffness of right hip, not elsewhere classified; M25.851 Other specified joint disorders, right hip; M25.351 Other instability, right hip
CPT/HCPCS: 97110; 97140; 97161

== ENCOUNTER 2024-10-10 11:30 | Outpatient (RCR) | payer MEDICARE, MEDICAID, SELFPAY ==
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
--- NOTE | 2025-07-24 14:03 | PT.OPDS ---
Current Diagnoses Unsteadiness on feet (10/10/24) Dizziness and giddiness (10/10/24) Visit Care Team Role Provider Type Kalia Weaver DO Family Provider Physician Specialty: Family Practice Address: [address] [place] [address], [id number] Email: [email or web address] Attending Provider Physician Primary Care Provider Referring Provider Specialty: [facility] [employer] Address: [address] [place] [address], [id number] Fax: Email: [email or web address] Visit Number Visit Number 8 Discharge Summary PT-OP-T Assessment and Plan Start: 08/16/24 15:17 Freq: Status: Active Protocol: Document 07/24/25 14:01 DCW (Rec: 07/24/25 14:03 DCW [id number]) Physical Therapy Assessment Assessment Summary Assessment Pt has not been seen in more than nine months, plan of care has since . Pt to be discharged at this time, will require a new referral in order to return in the future.
== END 2025-07-25 09:35 | disposition home or self-care (01) ==
LOC: PHYS 11:30
PROVIDERS: Family Provider Family Medicine; PCP Family Medicine; Referring Provider Family Medicine; Visit Provider Family Medicine
DX: R42 Dizziness and giddiness (principal); R26.81 Unsteadiness on feet
CPT/HCPCS: 97012; 97140; 97163

== ENCOUNTER 2024-10-11 14:29 | Emergency (ER) | payer MEDICARE, MEDICAID, SELFPAY ==
[2024-10-11 14:45] VITALS: BP 115/70; PULSE 72; RESP 20; TEMP 36.8; O2SAT 100; BMI 27.9
[2024-10-11 15:07] LABS: Appearance Urine UA CLEAR; Bilirubin Urine UA NEGATIVE (NEGATIVE); Color Urine UA YELLOW; Glucose Urine UA NEGATIVE (Negative); Ketones Urine UA NEGATIVE (NEGATIVE); Leukocyte Esterase Urine UA NEGATIVE (NEGATIVE); Nitrite Urine UA NEGATIVE (Negative); Occult Blood Urine UA TRACE-INTACT (Negative); Protein Urine UA NEGATIVE (Negative); Urobilinogen Urine UA 0.2 E.U./dL (0.2)
[2024-10-11 15:18] LABS: Bacteria Urine None Seen; Culture Indicated Urine Cult Not Indicated; RBC Urine 0-1/HPF (0-5/HPF); Squamous Epithelial Cell Urine 0-1 /HPF (0-5/HPF); Urine Volume 10mL (spun); WBC Urine 0-1/HPF (0-5/HPF); pH Urine UA 5.5 (4.5-8.0)
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
--- NOTE | 2024-10-11 16:26 | DI.CT.S_ITS ---
PROCEDURE: CT ABDOMEN PELVIS W CON INDICATIONS: RLQ abd cramping, constipation TECHNIQUE: After the administration of intravenous contrast, axial sections acquired from the lung bases to the pubic symphysis. Coronal and sagittal reformats were performed. For radiation dose reduction, the following was used: automated exposure control, adjustment of mA and/or kV according to patient size. COMPARISON: [facility], CT, CT ABDOMEN PELVIS WO CON, 10/10/2020, 13:06. [facility], CT, CT ABDOMEN PELVIS W CON, 03/13/2018, 18:09. FINDINGS: Image quality: Diagnostic. Lower Chest: A small hiatal hernia is incidentally noted. ABDOMEN: Liver: No solid mass. Gallbladder: No radiopaque gallstones or wall thickening. Biliary ducts: No biliary dilation. Pancreas: No ductal dilation. Spleen: Size is within normal limits. Adrenal Glands: No adrenal nodules. Kidneys and Ureters: No hydronephrosis. No solid mass. No complex renal cystic lesion which requires follow up. Stomach and Bowel: In this patient with this given history, scrutiny is given to the appendix. A normal appendix is seen, as on series 3 images 55 through 62 and on series 2, image 101. No focal right lower quadrant inflammatory change can be seen. Distal colonic diverticulosis is seen, with mild wall thickening seen involving the distal colon.. The more proximal colon is within normal limits. Peritoneum: No peritoneal abscess is seen. No abnormal intraperitoneal fluid. No free air. Ventral Wall: No significant ventral hernia. Abdominal Nodes: No retroperitoneal or mesenteric adenopathy by size criteria. Vessels: Aorta and inferior vena cava are normal in size. Atherosclerotic calcification is noted. PELVIS: Pelvic Organs: No adnexal masses are seen on either side. Bladder: No bladder wall thickening, accounting for underdistention. Pelvic Nodes: No enlarged lymph nodes. Miscellaneous: No inguinal hernias are seen. Bones: No aggressive osseous abnormality. Focal L4-L5 degenerative change is seen. Milder degenerative changes are seen elsewhere. IMPRESSION: Normal appendix. Potential mild sigmoid diverticulitis, without findings of perforation or abscess. Additional findings: Small hiatal hernia Dictated by: Rodney Hammer M.D. on 10/11/2024 at 17:17 Approved by: Rodney Hammer M.D. on 10/11/2024 at 17:21
[2024-10-11 16:50] LABS: Add Manual Diff / Slide Review NO; Basophils Absolute Auto 100 /uL (0-100); Eosinophils Absolute Auto 100 /uL (0-450); Eosinophils Percent Auto 1.4 % (2-4); Hemoglobin 14.9 g/dL (12.0-16.0); Lymphocytes Absolute Auto 2700 /uL (1100-4500); Lymphocytes Percent Auto 33.3 % (25-40); Mean Corpuscular HGB Conc 33.8 % (30-36); Mean Corpuscular Hemoglobin 30.3 PG (26-34); Mean Corpuscular Volume 89.6 fL (80-100); Monocytes Absolute Auto 500 /uL (0-900); Monocytes Percent Auto 6.6 % (3-14); Neutrophils Absolute Auto 4700 /uL (1500-7000); Neutrophils Percent Auto 57.7 % (50-75); Platelet Count 204 X10^3/uL (150-400); Red Blood Cell Count 4.92 X10^6/uL (4.0-5.2); Red Cell Distribution Width 14.1 % (11.6-14.8); White Blood Cell Count 8.1 X10^3/uL (4.5-11.0)
[2024-10-11 17:03] LABS: Alanine Aminotransferase 20 IU/L (<35); Albumin 4.4 g/dL (3.5-5.0); Albumin Globulin Ratio 1.4 (1.0-2.8); Alkaline Phosphatase 101 U/L (38-126); Aspartate Aminotransferase 27 IU/L (14-36); BUN Creatinine Ratio 15.4 (6-22); Bilirubin Total 0.6 mg/dL (0.2-1.3); Blood Urea Nitrogen 14 mg/dL (7-17); Carbon Dioxide 24 mmol/L (22-32); Chloride 111 mmol/L (98-107); Estimated Glomerular Filt Rate > 60 mL/min (>60); Globulin 3.1 g/dL (1.7-4.1); Glucose 79 mg/dL (80-110); HEMOLYSIS 41 (0-50); Potassium 4.1 mmol/L (3.4-5.1); Sodium 142 mmol/L (137-145); Total Protein 7.5 g/dL (6.3-8.2)
[2024-10-11] MEDS: CIPROFLOXACIN 250 MG TABLET 500 MG PO (18:40)
[2024-10-11] MEDS: metroNIDAZOLE 500 MG TABLET PO (18:40)
[2024-10-11 18:46] VITALS: BP 121/60; PULSE 67; RESP 18; O2SAT 98
== END 2024-10-11 18:48 | disposition home or self-care (01) ==
PROVIDERS: Emergency Provider Physician Assistant Medical; Family Provider Family Medicine; PCP Family Medicine
DX: K57.32 Diverticulitis of large intestine without perforation or abscess without bleeding (principal); R42 Dizziness and giddiness; M54.2 Cervicalgia; R10.31 Right lower quadrant pain; Z87.442 Personal history of urinary calculi; K59.00 Constipation, unspecified; Z88.0 Allergy status to penicillin
CPT/HCPCS: 36415; 74177; 80053; 81001; 85025; 99283; 99285; Q9967

== ENCOUNTER 2025-01-10 15:35 | Emergency (ER) | payer MEDICARE, MEDICAID, SELFPAY ==
[2025-01-10 15:55] VITALS: BP 121/73; PULSE 82; RESP 12; TEMP 36.3; O2SAT 98; BMI 27.7
--- NOTE | 2025-01-10 16:02 | EKG_ITS ---
[facility] [address] [address] Test Date: 2025-01-10 Pat Name: Ashwini Rosas Department: [facility] Room: Gender: Female Managed Care Analyst: : 1960 Requested By: Order Number: [id number] Reading MD: Sj Quintana MD Measurements Intervals Camilla Rate: 68 P: 57 VT: 168 QRS: 3 QRSD: 78 T: 44 QT: 420 QTc: 446 Interpretive Statements Normal sinus rhythm with sinus arrhythmia Low voltage QRS Electronically Signed On 01-10-2025 17:27:10 PDT by Sj Quintana MD
--- NOTE | 2025-01-10 16:02 | DI.RAD.S_ITS ---
PROCEDURE: XR CHEST 1V INDICATIONS: Chest Pain TECHNIQUE: One view of the chest was acquired. COMPARISON: [facility], CR, XR CHEST 1V, 04/04/2023, 2:44. [facility], CR, XR CHEST 1V, 01/06/2023, 19:59. FINDINGS: Surgical changes and devices: None. Lungs and pleura: Lungs are clear. No pleural effusions or pneumothorax. Mediastinum: Mediastinal contours appear normal. Heart size is normal. Bones and chest wall: No suspicious bony lesions. Overlying soft tissues appear unremarkable. IMPRESSION: No acute cardiopulmonary abnormality is seen. Dictated by: Adriano Banks M.D. on 01/10/2025 at 17:02 Approved by: Adriano Banks M.D. on 01/10/2025 at 17:02
[2025-01-10 16:26] LABS: Add Manual Diff / Slide Review NO; Basophils Absolute Auto 100 /uL (0-100); Basophils Percent Auto 1.2 % (0-2); Eosinophils Absolute Auto 100 /uL (0-450); Eosinophils Percent Auto 0.7 % (2-4); Hematocrit 46.3 % (36-46); Hemoglobin 15.7 g/dL (12.0-16.0); Lymphocytes Absolute Auto 2700 /uL (1100-4500); Lymphocytes Percent Auto 36.1 % (25-40); Mean Corpuscular HGB Conc 33.8 % (30-36); Mean Corpuscular Hemoglobin 30.4 PG (26-34); Mean Corpuscular Volume 89.8 fL (80-100); Monocytes Absolute Auto 500 /uL (0-900); Monocytes Percent Auto 6.1 % (3-14); Neutrophils Absolute Auto 4200 /uL (1500-7000); Neutrophils Percent Auto 55.9 % (50-75); Platelet Count 231 X10^3/uL (150-400); Red Blood Cell Count 5.16 X10^6/uL (4.0-5.2); Red Cell Distribution Width 14.6 % (11.6-14.8); White Blood Cell Count 7.6 X10^3/uL (4.5-11.0)
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
[2025-01-10 16:39] LABS: Prothrombin Time 11.3 SECONDS (9.4-12.5)
[2025-01-10 16:41] LABS: PTT Partial Thromboplastin Tim 36 SECONDS (25.1-36.5)
--- NOTE | 2025-01-10 16:44 | ED_ITS ---
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 pains. Please follow up with your primary care doctor within the next 2-3 days for ER follow-up. (If you do not have a PCP you can call [phone]. ?to schedule an appointment with an [facility] Primary Care Provider) IF YOU DEVELOP ANY NEW OR WORSENING SYMPTOMS, RETURN TO THE ER! Please read the attached instructions, they highlight more specific treatments and interventions for you at home. Thank you for letting me participate in your care, Bisi Ochoa PA-C Prescriptions: No Action Zyrtec 10 mg capsule 10 mg PO DAILY Qty: 30 0RF diclofenac sodium [Arthritis Pain (diclofenac)] 1 % gel 2 g topical QID Qty: 100 0RF Rx Instructions: apply to single elbow, wrist or hand; for hand includes palm/fingers/back of hand gabapentin 300 mg capsule 300 mg PO DAILY PRN (Reason: pain) Qty: 90 1RF mirtazapine 30 mg tablet 30 mg PO BEDTIME Qty: 90 3RF albuterol sulfate 90 mcg/actuation HFA aerosol inhaler 2 puff INHALATION Q4-6H PRN (Reason: shortness of breath or wheezing) Qty: 18 11RF fluticasone propionate 50 mcg/actuation spray,suspension 1 spray intranasal SEE INSTRUCTIONS PRN (Reason: allergy symptoms) Qty: 1 11RF atorvastatin 40 mg tablet 40 mg PO ONCE PM Qty: 90 3RF tizanidine 2 mg tablet 4 mg PO Q8H PRN (Reason: for muscle spasm) Qty: 30 0RF meclizine 12.5 mg tablet 12.5 mg PO 3XD PRN (Reason: for vertigo) Qty: 90 1RF calcium carbonate-vitamin D3 500 mg(1,250mg) -400 unit tablet 1 tab PO DAILY Lactobacillus acidophilus 10 billion cell capsule See Rx Instructions .ROUTE .COMPLEX Rx Instructions: 1-2 caps PO daily; ciprofloxacin HCl [Cipro] 500 mg tablet 500 mg PO BID Qty: 19 0RF metronidazole 500 mg tablet 500 mg PO TID Qty: 29 0RF Referrals: Shanon Walls MD [Primary Care Provider] - Stand Alone Forms: Patient Portal/API/Survey ED Sign-out <Malachi Kelley MD - Last Filed: 01/11/25 01:49> Cosign ED Attending Umesh Attestation: I was immediately available in the department for consultation. This documentation has been reviewed and I agree with assessment and plan. Supervised by Malachi Kelley MD
[2025-01-10 16:48] LABS: Alanine Aminotransferase 25 IU/L (<35); Albumin 4.7 g/dL (3.5-5.0); Albumin Globulin Ratio 1.3 (1.0-2.8); Alkaline Phosphatase 102 U/L (38-126); Aspartate Aminotransferase 33 IU/L (14-36); BUN Creatinine Ratio 14.9 (6-22); Bilirubin Total 0.8 mg/dL (0.2-1.3); Blood Urea Nitrogen 13 mg/dL (7-17); Calcium 9.3 mg/dL (8.4-10.2); Carbon Dioxide 23 mmol/L (22-32); Chloride 110 mmol/L (98-107); Creatine Kinase 71 U/L (30-135); Estimated Glomerular Filt Rate > 60 mL/min (>60); Globulin 3.5 g/dL (1.7-4.1); Glucose 90 mg/dL (70-99); Lactate (Lactic Acid) 1.2 mmol/L (0.7-2.1); Lipase 62 U/L (23-300); Magnesium 2.1 mg/dL (1.6-2.3); Potassium 4.5 mmol/L (3.4-5.1); Sodium 141 mmol/L (137-145); Total Protein 8.2 g/dL (6.3-8.2)
[2025-01-10 16:49] VITALS: BP 144/70; PULSE 88; RESP 14; O2SAT 99
[2025-01-10 16:49] LABS: HEMOLYSIS 59 (0-50)
--- NOTE | 2025-01-10 16:58 | DI.CT.S_ITS ---
PROCEDURE: CT HEAD/BRAIN WO CON INDICATIONS: dizzy, LEVY, black out spells TECHNIQUE: Noncontrast 4.5 mm thick angled axial sections acquired from the foramen magnum to the vertex, with coronal and sagittal reformats. For radiation dose reduction, the following was used: automated exposure control, adjustment of mA and/or kV according to patient size. COMPARISON: [facility], MR, MR HEAD/BRAIN WO CON, 03/29/2024, 16:50. FINDINGS: Image quality: Diagnostic. CSF spaces: Basal cisterns are patent. No extra-axial fluid collections. The ventricles are symmetric in size and shape. Brain: No acute intracranial hemorrhage or mass effect. There is cerebral volume loss, with resultant ventricular and sulcal prominence. There are periventricular and deep white matter chronic small vessel ischemic changes. There is intracranial internal carotid artery atherosclerosis. Skull and face: Calvarium and visualized facial bones appear intact, without suspicious lesions. Sinuses: Visualized sinuses and mastoids are clear. IMPRESSION: No acute intracranial pathology. Approved by: Chano Norman M.D. on 01/10/2025 at 17:40
--- NOTE | 2025-01-10 16:58 | DI.CT.S_ITS ---
PROCEDURE: CT CERVICAL SPINE WO CON INDICATIONS: acute on chronic neck pain after syncope TECHNIQUE: Noncontrast 3 mm thick sections acquired from the skull base to the T4 level. Sagittal and coronal reformats were then constructed. For radiation dose reduction, the following was used: automated exposure control, adjustment of mA and/or kV according to patient size. COMPARISON: [facility], CR, XR CERVICAL SPINE WITH FLEXION EXTENSION, 01/02/2025, 14:45. FINDINGS: Image quality: Excellent. Bones: No acute fractures or dislocations. Visualized superior ribs are intact. Multilevel disc space narrowing and degenerative endplate changes. Multilevel uncovertebral joint and facet hypertrophy. Soft tissues: Prevertebral soft tissues are normal in thickness. No paravertebral hematomas. No apical pneumothoraces. Mild centrilobular and paraseptal emphysema in the lung apices. IMPRESSION: 1. No acute displaced fracture or traumatic subluxation. 2. [id number] multilevel spondylosis. Approved by: Chano Norman M.D. on 01/10/2025 at 17:42
--- NOTE | 2025-01-10 16:58 | DI.CT.S_ITS ---
PROCEDURE: CT ANGIO HEAD AND NECK INDICATIONS: dizzy, LEVY, black out spells TECHNIQUE: After the administration of intravenous contrast, 1 mm thick sections acquired from the aortic arch through the [place]. 3-dimensional qsltemf-vdpjmqdgt-zzsjkdlndb (MIP) and/or volume rendering reformats were acquired of the central intracranial vasculature and neck separately. For radiation dose reduction, the following was used: automated exposure control, adjustment of mA and/or kV according to patient size. COMPARISON: [facility], CT, CT HEAD/BRAIN WO CON, 01/10/2025, 17:12. [facility], MR, MR HEAD/BRAIN WO CON, 03/29/2024, 16:50. FINDINGS: Image quality: Diagnostic. BRAIN: Please see the separately dictated report from the noncontrast CT of the head performed at the same time. No abnormal intracranial arterial-phase enhancement. HEAD CT ANGIOGRAPHY: Anterior circulation: Intracranial internal carotid arteries demonstrate mild atherosclerotic calcifications without hemodynamically significant stenosis.. The flow within the paired anterior cerebral arteries is normal and symmetric. The flow within the middle cerebral arteries is normal and symmetric. The anterior communicating artery is seen. No aneurysms are seen. Posterior circulation: Visualized portions of the vertebral arteries demonstrate normal caliber, and join to form a normal appearing basilar artery. Flow within the posterior cerebral arteries is normal and symmetric. No aneurysms are seen. NECK CT ANGIOGRAPHY: Carotid system: The great vessels demonstrate a conventional anatomy as they arise from the aortic arch. The origins of the common carotid arteries appear patent. The common carotid arteries demonstrate normal caliber and courses. The bifurcation regions are both widely patent. The internal carotid arteries demonstrate normal calibers and courses. Posterior circulation: The origins of the vertebral arteries both appear widely patent. The more superior extracranial portions of both vertebral arteries also demonstrate normal courses and calibers. They join to form a normal appearing basilar artery. Soft tissues: Visualized neck soft tissues demonstrate no suspicious abnormalities. Centrilobular and paraseptal emphysema in the lung apices. Bones: No suspicious bony lesions. Degenerative changes in the included spine. IMPRESSION: No significant intracranial arterial abnormality is seen. No significant abnormality is seen within the arteries of the neck. Any quantitative measurements of stenosis were performed using NASCET criteria. Approved by: Chano Norman M.D. on 01/10/2025 at 17:46
[2025-01-10 16:59] LABS: NT-proBNP (BNP-Adult 18+) 152 pg/mL (<125); Troponin I < 0.012 ng/mL (0.01-0.034)
[2025-01-10 17:25] VITALS: BP 141/64; PULSE 68; RESP 24; O2SAT 99
[2025-01-10 17:34] VITALS: BP 141/74; BP 141/79; PULSE 67; PULSE 92
[2025-01-10] MEDS: SODIUM CHLORIDE 0.9% 1,000 ML 1000 ML IV (17:38)
[2025-01-10] MEDS: ONDANSETRON 4 MG/2 ML INJ IV (17:38)
[2025-01-10] MEDS: ACETAMINOPHEN 325 MG TABLET 975 MG PO (17:38)
[2025-01-10 17:56] LABS: Appearance Urine UA CLEAR; Bilirubin Urine UA NEGATIVE (NEGATIVE); Color Urine UA YELLOW; Glucose Urine UA NEGATIVE (Negative); Ketones Urine UA NEGATIVE (NEGATIVE); Leukocyte Esterase Urine UA NEGATIVE (NEGATIVE); Nitrite Urine UA NEGATIVE (Negative); Occult Blood Urine UA TRACE-LYSED (Negative); Protein Urine UA NEGATIVE (Negative); Specific Gravity Urine UA <=1.005 (1.000-1.035); Urobilinogen Urine UA 0.2 E.U./dL (0.2)
[2025-01-10 17:57] VITALS: BP 145/65; PULSE 53; RESP 14; O2SAT 99
[2025-01-10 18:00] LABS: Ur Creatinine Normal (Normal); Ur Specific Gravity Normal (Normal); Urine pH Normal (Normal)
[2025-01-10 18:01] LABS: UR Morphine/Opiate cutoff 300 Negative (Negative); Urine Amphetamines Negative (Negative); Urine Barbiturates Negative (Negative); Urine Benzodiazepines Negative (Negative); Urine Cocaine Negative (Negative); Urine MDMA Negative (Negative); Urine Methadone Negative (Negative); Urine Methamphetamines Negative (Negative); Urine Oxycodone Negative (Negative); Urine Phencyclidine Negative (Negative); Urine Tetrahydrocannabinol Positive (Negative); Urine Tricyclic Antidepressant Negative (Negative)
[2025-01-10 18:07] LABS: Bacteria Urine None Seen; Culture Indicated Urine Cult Not Indicated; RBC Urine 0-1/HPF (0-5/HPF); Squamous Epithelial Cell Urine 0-1 /HPF (0-5/HPF); Urine Volume 10mL (spun); WBC Urine None Seen (0-5/HPF)
[2025-01-10 19:01] VITALS: BP 147/67; PULSE 62; RESP 20; TEMP 37.3; O2SAT 99
== END 2025-01-10 19:02 | disposition home or self-care (01) ==
PROVIDERS: Emergency Medicine; Emergency Provider Physician Assistant; Family Provider Family Medicine; PCP Family Medicine
DX: R42 Dizziness and giddiness (principal); R07.9 Chest pain, unspecified; R11.2 Nausea with vomiting, unspecified; Z01.30 Encounter for examination of blood pressure without abnormal findings
CPT/HCPCS: 36415; 70450; 70496; 70498; 71045; 72125; 80053; 80305; 81001; 82550; 83605; 83690; 83735; 83880; 84484; 85025; 85610; 85730; 93005; 93010; 96361; 96374; 99284; J2405

== ENCOUNTER → 2025-02-22 16:13 | Outpatient (CLI) | payer MEDICARE, MEDICAID, SELFPAY ==
[2025-02-22 16:53] LABS: Hemoglobin A1C% w Est Avg Glu 5.3 % (4.0-6.0)
[2025-02-22 17:36] LABS: Cholesterol 213 mg/dL (140-199); HDL Cholesterol 56 mg/dL (40-60); LDL Cholesterol Calculated 136 mg/dL (<100); Triglycerides 107 mg/dL (35-150)
== END ==
PROVIDERS: PCP Family Medicine; Referring Provider Family Medicine; Visit Provider Family Medicine
DX: Z13.1 Encounter for screening for diabetes mellitus (principal); E78.00 Pure hypercholesterolemia, unspecified
CPT/HCPCS: 36415; 80061; 83036